=== PATIENT | female | born 1940 | race Caucasian/White ===

== ENCOUNTER 2017-02-26 13:32 | Inpatient (IN) | payer OTHER, BC ==
[~2017-02-26] VITALS: Ht 157.5 cm; Wt 61.3 kg
[2017-02-26] MEDS ORDERED: SODIUM CHLORIDE 0.9% 1000ML 1,000 ML IV STA (13:55)
[2017-02-26] MEDS ORDERED: NITROGLYCERIN 0.4 MG SL PER TAB CHARGE SL PRN ×2 (14:00→16:00)
--- NOTE | 2017-02-26 14:42 | DIAGNOSTIC IMAGING REPORT ---
CHEST ONE VIEW PORTABLE CLINICAL HISTORY: Chest pain. COMPARISON STUDY: No previous studies for comparison. FINDINGS: The lung volumes are normal. No pneumothorax or pleural effusion is present. Minimal left basilar opacity suggests atelectasis. There is no consolidation to suggest pneumonia and there is no evidence of pulmonary edema. Cardiomediastinal silhouette is unremarkable. IMPRESSION: 1. No acute cardiopulmonary findings. 2. Mild left basilar opacity which favors atelectasis. Electronically signed by: Christian Johnson M.D. 02/26/2017 2:40 PM Dictated Date/Time: 02/26/2017 2:39 PM
[2017-02-26 14:44] LABS: BASO % 0.5 %; BASO ABS # 0.03 K/uL (0-0.2); COMPLETE YES; EOS % 1.6 %; HEMATOCRIT 40.6 % (37-47); IG% 0.2 %; LYMPH % 22.8 %; LYMPH ABS # 1.29 K/uL (1.2-3.4); MEAN CELL VOLUME 91.4 fL (80-100); MEAN CORPUSCULAR HEMOGLOBIN 29.7 pg (25-34); MEAN CORPUSCULAR HGB CONC 32.5 g/dl (32-36); MEAN PLATELET VOLUME 11.3 fL (7.4-10.4); NEUT % 65.9 %; PLATELET COUNT 207 K/uL (130-400); RED BLOOD COUNT 4.44 M/uL (4.2-5.4); WHITE BLOOD COUNT 5.66 K/uL (4.8-10.8)
[2017-02-26 14:50] LABS: BUN/CREATININE RATIO 32.1 (10-20); CALCIUM 8.9 mg/dl (8.5-10.1); CREATININE 0.9 mg/dl (0.60-1.20); POTASSIUM 4.7 mmol/L (3.5-5.1)
[2017-02-26] MEDS ORDERED: IBUP-1277 PO (14:50)
[2017-02-26] MEDS ORDERED: FLUT0.15 NAE (14:50)
[2017-02-26] MEDS ORDERED: LUTE6CAP PO (14:50)
[2017-02-26] MEDS ORDERED: VALA500T60 PO (14:50)
[2017-02-26] MEDS ORDERED: CITA20TA9 PO (14:50)
[2017-02-26] MEDS ORDERED: OMEG10007 PO (14:50)
[2017-02-26] MEDS ORDERED: SIMV40TA2 PO (14:50)
[2017-02-26 15:06] LABS: CKMB/CK RATIO 1.8 (0-3.0)
[2017-02-26] MEDS ORDERED: HEPARIN 25000 UNIT/500 ML D5W ONE (15:58)
[2017-02-26] MEDS ORDERED: HEPARIN SOD 5000 UNIT/0.5 ML CARP ONE (15:58)
[2017-02-26] MEDS ORDERED: ACETAMINOPHEN 325 MG TAB PO PRN (16:00)
[2017-02-26] MEDS ORDERED: ONDANSETRON INJ 2 MG/ML 2 ML VIAL IV PRN (16:00)
[2017-02-26] MEDS ORDERED: HEPARIN IV BOLUS 3,000 UNIT in SYRINGE 0 ML IV ONE (16:15)
[2017-02-26] MEDS ORDERED: CALC500C70 PO (16:17)
[2017-02-26] MEDS ORDERED: LUTE15CA PO (16:17)
[2017-02-26] MEDS ORDERED: MULT-506 PO (16:17)
[2017-02-26] MEDS ORDERED: GLUC500C4 PO (16:17)
[2017-02-26] MEDS ORDERED: OPTIRAY 320 IV PRN (16:45)
[2017-02-26] MEDS ORDERED: DiphenhydrAMINE HCL 50 MG/ML VIAL ONE (17:13)
[2017-02-26] MEDS ORDERED: METHYLPREDNISOLONE 125 MG VIAL ONE (17:13)
--- NOTE | 2017-02-26 17:14 | History and Physical ---
History & Physical Date & Time of Service: Feb 26, 2017 ~ 15:45 Chief Complaint: Chest Pain Primary Care Physician: No Doctor, Assigned History of Present Illness 76 year old female who presents to the ER with chest pain. Patient reports she is very active with walking and exercising regularly and she noticed a week ago while on her stationary bike that she was very short of breath and had chest tightness. She reports that continually throughout the week she developed shortness of breath and chest tightness with minimal activity. She reports symptoms resolved with rest. She reports associated lightheadedness. Denies any syncopal events. Today after going for a short walk outside she also had diaphoresis with these symptoms. EMS was then called. She was given ASA and nitro with resolution of her pain. Patient notes feeling increasingly fatigued. She woke up in the middle of the night last night and had chest discomfort thinking it was reflux and took TUMS. She unsure of it helped however was able to fall back to sleep. She denies any radiation of the pain into her jaw, neck, or shoulder. She denies abdominal pain, nausea, vomiting, or diarrhea. No fever or chills. She denies urinary symptoms. In the ER, patient's troponin is 0.051, EKG is unchanged from prior. She is currently chest pain free. She was started on IV heparin. Past Medical/Surgical History Medical Problems: (1) Anxiety Status: Chronic (2) Arthritis Status: Chronic (3) HLD (hyperlipidemia) Status: Chronic Surgical Problems: (1) H/O oophorectomy Status: Chronic (2) H/O thumb surgery Status: Chronic (3) History of arthroscopy of right shoulder Status: Chronic (4) History of cataract surgery Status: Chronic Social History Smoking Status: Former Smoker Alcohol Use: occasionally Marital Status: Housing status: lives with family Allergies Coded Allergies: No Known Allergies (Unverified , 02/26/17) Home Medications Scheduled Calcium/Vitamin D (Os-Edi 500 Plus D), 1 TAB PO DAILY Citalopram Hydrobromide (Celexa), 20 MG PO HS Fish Oil ([place]-3), 1 CAP PO QAM Fluticasone Propionate (Nasal) (Flonase Allergy Relief), 1 SPRAY [place]ALE BID Glucosamine Sulfate (Glucosamine), 1 CAP PO DAILY Lutein-Zeaxanthin (Lutein), 1 CAP PO DAILY Multivitamin (Multivitamin), 1 TAB PO DAILY Simvastatin (Zocor), 40 MG PO HS Valacyclovir (Valtrex), 500 MG PO UD Scheduled PRN Ibuprofen (Advil), 200-600 MG PO UD PRN for Pain Review of Systems ROS per HPI, all other systems reviewed and negative Physical Exam Vital Signs Date Time Temp Pulse Resp B/P (MAP) Pulse Ox O2 Delivery O2 Flow Rate FiO2 02/26/17 16:32 74 17 96/83 02/26/17 16:10 127/63 02/26/17 16:02 62 21 02/26/17 15:32 71 22 97 02/26/17 15:02 66 26 98 02/26/17 14:32 61 20 98 02/26/17 14:31 129/64 02/26/17 14:28 126/73 02/26/17 14:28 66 16 126/73 98 Room Air 02/26/17 14:20 119/67 02/26/17 14:20 71 16 119/67 95 Room Air 02/26/17 14:02 68 26 98 02/26/17 13:59 36.6 72 16 127/71 94 Room Air 02/26/17 13:42 73 02/26/17 13:35 127/71 General Appearance: no apparent distress Head: normocephalic Eyes: normal inspection ENT: hearing grossly normal Neck: supple, no JVD Respiratory/Chest: chest non-tender, lungs clear, normal breath sounds, no respiratory distress Cardiovascular: regular rate, rhythm, no edema, normal peripheral pulses Abdomen/GI: normal bowel sounds, non tender, soft Extremities/Musculoskelatal: normal inspection, no calf tenderness Neurologic/Psych: no motor/sensory deficits, alert, normal mood/affect, oriented x 3 Skin: normal color, warm/dry Diagnostics Laboratory Results Results Past 24 Hours Test 02/26/17 14:10 Range/Units White Blood Count 5.66 4.8-10.8 K/uL Red Blood Count 4.44 4.2-5.4 M/uL Hemoglobin 13.2 12.0-16.0 g/dL Hematocrit 40.6 37-47 % Mean Corpuscular Volume 91.4 80-100 fL Mean Corpuscular Hemoglobin 29.7 25-34 pg Mean Corpuscular Hemoglobin Concent 32.5 32-36 g/dl Platelet Count 207 130-400 K/uL Mean Platelet Volume 11.3 7.4-10.4 fL Neutrophils (%) (Auto) 65.9 % Lymphocytes (%) (Auto) 22.8 % Monocytes (%) (Auto) 9.0 % Eosinophils (%) (Auto) 1.6 % Basophils (%) (Auto) 0.5 % Neutrophils # (Auto) 3.73 1.4-6.5 K/uL Lymphocytes # (Auto) 1.29 1.2-3.4 K/uL Monocytes # (Auto) 0.51 0.11-0.59 K/uL Eosinophils # (Auto) 0.09 0-0.5 K/uL Basophils # (Auto) 0.03 0-0.2 K/uL RDW Standard Deviation 48.2 36.4-46.3 fL RDW Coefficient of Variation 14.2 11.5-14.5 % Immature Granulocyte % (Auto) 0.2 % Immature Granulocyte # (Auto) 0.01 0.00-0.02 K/uL Activated Partial Thromboplast Time 27.1 21.0-31.0 SECONDS Partial Thromboplastin Ratio 1.0 D-Dimer 610 0-500 ug/L FEU Sodium Level 143 136-145 mmol/L Potassium Level 4.7 3.5-5.1 mmol/L Chloride Level 110 98-107 mmol/L Carbon Dioxide Level 27 21-32 mmol/L Anion Gap 6.0 3-11 mmol/L Blood Urea Nitrogen 29 7-18 mg/dl Creatinine 0.90 0.60-1.20 mg/dl Est Creatinine Clear Calc Drug Dose 46.1 ml/min Estimated GFR () 72.0 Estimated GFR (Non- 62.1 BUN/Creatinine Ratio 32.1 10-20 Random Glucose 84 70-99 mg/dl Calcium Level 8.9 8.5-10.1 mg/dl Total Creatine Kinase 39 26-192 U/L Creatine Kinase MB 0.7 0.5-3.6 ng/ml Creatine Kinase MB Ratio 1.8 0-3.0 Troponin I 0.051 0-0.045 ng/ml Diagnostic Radiology CXR IMPRESSION: 1. No acute cardiopulmonary findings. 2. Mild left basilar opacity which favors atelectasis. Impression Assessment and Plan CHEST PAIN, NSTEMI - admit to tele - patient presenting with worsening exertional chest pain x 1 week; in the ER, troponin 0.051, EKG unchanged from prior - risk factors: + family history, HLD - chest pain relieved with nitro with EMS - s/p full dose ASA with EMS, will continue with 81mg daily - takes simvastatin 40mg - will change to atorvastatin 80mg - heparin started in ED, will continue with - continue to cycle cardiac enzymes, check resting echo - case discussed with Dr. Sheridan ANXIETY - continue citalopram DVT PROPHYLAXIS - on IV heparin DISPO - In my clinical judgment this beneficiary meets acute admission criteria, established by [facility], that includes being hospitalized through two midnights. Attending Addendum Pt was seen and examined. Agreed with [facility] SNYDER physical exam, assessment and plan. 76 year old female presents to the ER with chest pain. Pt describes the pain as chest tightness associated with SOB; and symptoms worsening with exertion. General- No acute distress Head- atraumatic Eyes- PERRL, EOMI ENT- oropharynx clear Neck- supple, no JVD Lungs- clear to auscultation Heart- regular rhythm; no murmur A/P CHEST PAIN Possible NSTEMI with mildly elevated troponin - risk factors: + family history, HLD - chest pain relieved with nitro with EMS - s/p full dose ASA with EMS, will continue with 81mg daily - takes simvastatin 40mg - will change to atorvastatin 80mg - heparin started in ED, continue heparin drip - continue to cycle cardiac enzymes, check resting echo - cardiology consulted - Case discussed with Dr. Sheridan that plan for cardiac cath in am - Continue monitor in tele Lab, EKG and imaging reviewed Please refer to [facility] documentation for other problems. Jolynn Abreu MD VTE Prophylaxis VTE Risk Assessment Done? Y/N: Yes Risk Level: Moderate Given or contraindicated: Other Anticoagulation
--- NOTE | 2017-02-26 17:18 | DIAGNOSTIC IMAGING REPORT ---
CT ANGIOGRAM OF THE CHEST CLINICAL HISTORY: Atypical chest pain. Dyspnea. COMPARISON STUDY: Chest x-ray dated 02/26/2017. TECHNIQUE: Following the IV administration of 97 cc of Optiray 320, CT angiogram of the chest was performed from the upper abdomen to the thoracic inlet utilizing the pulmonary embolus protocol. Images are reviewed in the axial, sagittal, and coronal planes. 3-D MIPS images are created and assessed. IV contrast was administered without complication. A dose lowering technique was utilized adhering to the principles of ALARA. CT DOSE: 350.47 mGy.cm FINDINGS: Thyroid: Imaged portions of the thyroid gland are normal in size and attenuation. Thoracic aorta: The thoracic aorta is normal in caliber and demonstrates standard 3-vessel arch anatomy. No dissection is seen. Pulmonary vasculature: The pulmonary trunk is normal in caliber. There are no filling defects identified in main, lobar, or segmental pulmonary branches to suggest pulmonary embolus. Heart: The heart is normal in size and configuration, and without pericardial effusion. Lungs and pleural spaces: There is dependent atelectasis. No airspace consolidation is seen typical for pneumonia and there is no pleural effusion. The trachea and central airways are clear. Foci of air trapping are present at the lung bases. Mediastinum: There is no mediastinal lymphadenopathy. Scarlet: Clear. Axillae: There is no axillary lymphadenopathy. Upper abdomen: A 1.9 cm cyst is identified in the left lobe of the liver. Partially visualized upper abdominal viscera is otherwise within normal limits. Skeletal structures: The skeletal structures are osteopenic. No lytic or blastic bony lesions are seen. IMPRESSION: 1. There is no evidence of pulmonary embolus in the main, lobar, or segmental pulmonary arteries. 2. There is no airspace consolidation typical for pneumonia or pleural effusion. 3. There is significant bibasilar atelectasis with foci of air trapping in the lower lobes. Electronically signed by: Henrik Roland M.D. 02/26/2017 5:17 PM Dictated Date/Time: 02/26/2017 5:11 PM
[2017-02-26] MEDS ORDERED: METOPROLOL TARTRATE 1 MG/ML VIAL ONE (17:34)
[2017-02-26] MEDS ORDERED: METOPROLOL TARTRATE 50 MG TAB PO STA (17:43)
[2017-02-26] MEDS ORDERED: METOPROLOL TARTRATE 50 MG TAB ONE (17:57)
--- NOTE | 2017-02-26 18:11 | PROGRESS NOTE ---
DATE: 02/26/2017 CARDIOLOGY CONSULTATION FOLLOWUP NOTE SUBJECTIVE: The patient seen and examined in the emergency room at 1730. The patient after undergoing CT scan developed mild rigors and acute chest discomfort with elevated heart rate. Repeat EKG demonstrated ST elevation mild in V2. She was given sublingual nitroglycerin, IV fluids with resolve of symptoms and resolution of ST-segment changes on EKG. She was given 5 mg IV metoprolol for heart rate control. Will be continued on oral metoprolol, IV heparin, aspirin and anticipated cardiac catheterization in a.m. unless symptoms change, otherwise patient currently comfortable and hemodynamically stable. The patient was assessed by myself as well as Dr. Browne in the Emergency Room.
[2017-02-26 18:30] VITALS: BP 106/48; PULSE 64; TEMP 36.8; O2SAT 96; Ht 157.5 cm; Wt 61.3 kg
--- NOTE | 2017-02-26 19:23 | EMERGENCY ROOM VISIT NOTE ---
History Report prepared by Selwyn: Ryder Wilder Under the Supervision of: Dr. Lon Schofield D.O. First contact with patient: 13:43 Stated Complaint: CHEST PAIN History of Present Illness The patient is a 76 year old female who presents to the Emergency Room with complaints of intermittent chest pain that began last week. She rates her pain as a 1/10 in severity. She reports that she is typically active and was on her stationary bike when she started to experience chest tightness and shortness of breath, which she admits is not usual. The patient states that she had to turn down her speed and could not last as long. She states she was able to do her other exercises despite her experiencing diaphoresis. The patient states that she had a near syncopal episode and chest tightness while trying to make her bed four nights ago. She reports that she was able to sit down and her symptoms resolved. The patient reports around 0330 this morning, she woke up with a feeling of chest tightness again and thought it was her acid reflux. The patient states that she did not eat any food that would cause the reflux, but took Tums anyway. She reports that she was able to get back to sleep. The patient states that she went on a walk around 0930 this morning when she started to experience similar symptoms to her original chest pain experience. She states that she also developed a headache and neck tightness that caused her to stop her walk and return home. The patient states that she took two Tylenol for her symptoms and was given a nitroglycerin and aspiring on her way to the ED via EMS. She admits that she is always hungry and currently has a headache and neck pain. The patient admits she has a high cholesterol, but denies any heart disease, hypertension, diabetes, or cancer history. The patient denies change in vision, fevers, nausea, vomiting, diarrhea, pain with urination, and melena. Source of History: patient Onset: a week ago Position: chest Symptom Intensity: 1/10 Quality: other (tightness) Timing: intermittent Modifying Factors (Worsening): exertion Modifying Factors (Relieving): rest Associated Symptoms: + diaphoresis, + neck pain, + SOB, + weakness Review of Systems See HPI for pertinent positives & negatives. A total of 10 systems reviewed and were otherwise negative. Past Medical & Surgical Medical Problems: (1) Anxiety (2) Arthritis (3) HLD (hyperlipidemia) Surgical Problems: (1) H/O oophorectomy (2) H/O thumb surgery (3) History of arthroscopy of right shoulder (4) History of cataract surgery Family History FH: cancer FH: heart disease Hypertension Social History Smoking Status: Former Smoker Smokeless Tobacco Use: No Alcohol Use: occasionally Drug Use: none Marital Status: Housing Status: lives with significant other Occupation Status: retired Current/Historical Medications Scheduled Calcium/Vitamin D (Os-Edi 500 Plus D), 1 TAB PO DAILY Citalopram Hydrobromide (Celexa), 20 MG PO HS Fish Oil (Larned-3), 1 CAP PO QAM Fluticasone Propionate (Nasal) (Flonase Allergy Relief), 1 SPRAY DALE BID Glucosamine Sulfate (Glucosamine), 1 CAP PO DAILY Lutein-Zeaxanthin (Lutein), 1 CAP PO DAILY Multivitamin (Multivitamin), 1 TAB PO DAILY Simvastatin (Zocor), 40 MG PO HS Valacyclovir (Valtrex), 500 MG PO UD Scheduled PRN Ibuprofen (Advil), 200-600 MG PO UD PRN for Pain Allergies Coded Allergies: No Known Allergies (Unverified , 02/26/17) Physical Exam Vital Signs Date Time Temp Pulse Resp B/P (MAP) Pulse Ox O2 Delivery O2 Flow Rate FiO2 02/26/17 18:30 36.8 64 18 106/48 96 Room Air 02/26/17 17:50 82 20 126/59 97 Nasal Cannula 4.0 02/26/17 17:37 94 133/80 02/26/17 17:28 101 22 129/92 98 Nasal Cannula 4.0 02/26/17 16:32 74 17 96/83 02/26/17 16:10 127/63 02/26/17 16:02 62 21 02/26/17 15:32 71 22 97 02/26/17 15:02 66 26 98 02/26/17 14:32 61 20 98 02/26/17 14:31 129/64 02/26/17 14:28 126/73 02/26/17 14:28 66 16 126/73 98 Room Air 02/26/17 14:20 119/67 02/26/17 14:20 71 16 119/67 95 Room Air 02/26/17 14:02 68 26 98 02/26/17 13:59 36.6 72 16 127/71 94 Room Air 02/26/17 13:42 73 02/26/17 13:35 127/71 Physical Exam GENERAL: sitting up in bed, alert, ill appearing, moderate distress EYE EXAM: normal conjunctiva, PERRL and EOM's grossly intact OROPHARYNX: no exudate, no erythema, lips, buccal mucosa, and tongue normal and mucous membranes are moist NECK: supple, no nuchal rigidity, no adenopathy, non-tender LUNGS: Clear to auscultation. Normal chest wall mechanics HEART: no murmurs, S1 normal and S2 normal ABDOMEN: abdomen soft, non-tender, normo-active bowel sounds, no masses, no rebound or guarding. BACK: Back is symmetrical on inspection and there is no deformity, no midline tenderness, no CVA tenderness. SKIN: no rashes and no bruising UPPER EXTREMITIES: upper extremities are grossly normal. Radial pulses equal bilaterally. LOWER EXTREMITIES: No pitting edema. Calves equal bilaterally. NEURO EXAM: Normal sensorium, cranial nerves II-XII grossly intact, normal speech, no gross weakness of arms, no gross weakness of legs. Gross sensation intact. Medical Decision & Procedures ER Provider Diagnostic Interpretation: XRAY: A chest one view study was reviewed, no fracture was seen. CHEST ONE VIEW PORTABLE CLINICAL HISTORY: Chest pain. COMPARISON STUDY: No previous studies for comparison. FINDINGS: The lung volumes are normal. No pneumothorax or pleural effusion is present. Minimal left basilar opacity suggests atelectasis. There is no consolidation to suggest pneumonia and there is no evidence of pulmonary edema. Cardiomediastinal silhouette is unremarkable. IMPRESSION: 1. No acute cardiopulmonary findings. 2. Mild left basilar opacity which favors atelectasis. Electronically signed by: Christian Johnson M.D. 02/26/2017 2:40 PM Dictated Date/Time: 02/26/2017 2:39 PM Laboratory Results 02/26/17 14:10 Red Blood Count 4.44, Mean Corpuscular Volume 91.4, Mean Corpuscular Hemoglobin 29.7, Mean Corpuscular Hemoglobin Concent 32.5, Mean Platelet Volume 11.3, Neutrophils (%) (Auto) 65.9, Lymphocytes (%) (Auto) 22.8, Monocytes (%) (Auto) 9.0, Eosinophils (%) (Auto) 1.6, Basophils (%) (Auto) 0.5, Neutrophils # (Auto) 3.73, Lymphocytes # (Auto) 1.29, Monocytes # (Auto) 0.51, Eosinophils # (Auto) 0.09, Basophils # (Auto) 0.03 02/26/17 14:10 Test 02/26/17 14:10 White Blood Count 5.66 K/uL (4.8-10.8) Red Blood Count 4.44 M/uL (4.2-5.4) Hemoglobin 13.2 g/dL (12.0-16.0) Hematocrit 40.6 % (37-47) Mean Corpuscular Volume 91.4 fL (80-100) Mean Corpuscular Hemoglobin 29.7 pg (25-34) Mean Corpuscular Hemoglobin Concent 32.5 g/dl (32-36) Platelet Count 207 K/uL (130-400) Mean Platelet Volume 11.3 fL (7.4-10.4) Neutrophils (%) (Auto) 65.9 % Lymphocytes (%) (Auto) 22.8 % Monocytes (%) (Auto) 9.0 % Eosinophils (%) (Auto) 1.6 % Basophils (%) (Auto) 0.5 % Neutrophils # (Auto) 3.73 K/uL (1.4-6.5) Lymphocytes # (Auto) 1.29 K/uL (1.2-3.4) Monocytes # (Auto) 0.51 K/uL (0.11-0.59) Eosinophils # (Auto) 0.09 K/uL (0-0.5) Basophils # (Auto) 0.03 K/uL (0-0.2) RDW Standard Deviation 48.2 fL (36.4-46.3) RDW Coefficient of Variation 14.2 % (11.5-14.5) Immature Granulocyte % (Auto) 0.2 % Immature Granulocyte # (Auto) 0.01 K/uL (0.00-0.02) Activated Partial Thromboplast Time 27.1 SECONDS (21.0-31.0) Partial Thromboplastin Ratio 1.0 D-Dimer 610 ug/L FEU (0-500) Anion Gap 6.0 mmol/L (3-11) Est Creatinine Clear Calc Drug Dose 46.1 ml/min Estimated GFR () 72.0 Estimated GFR (Non- 62.1 BUN/Creatinine Ratio 32.1 (10-20) Calcium Level 8.9 mg/dl (8.5-10.1) Total Creatine Kinase 39 U/L (26-192) Creatine Kinase MB 0.7 ng/ml (0.5-3.6) Creatine Kinase MB Ratio 1.8 (0-3.0) Troponin I 0.051 ng/ml (0-0.045) Thyroid Stimulating Hormone (TSH) 1.920 uIu/ml (0.300-4.500) Laboratory results per my review. Medications Administered Medications (Trade) Dose Ordered Sig/Susanna Route Start Time Stop Time Status Last Admin Dose Admin Sodium Chloride 1,000 ml @ 999 mls/hr Q1H1M STAT IV 02/26/17 13:55 02/26/17 14:55 DC 02/26/17 14:05 999 MLS/HR Nitroglycerin (Nitrostat Tab) 0.4 mg Q5M PRN SL 02/26/17 14:00 03/28/17 13:59 02/26/17 14:04 0.4 MG Heparin Sodium (Porcine) (Heparin Sq 5000 Unit/0.5ml) 5,000 unit STK-MED ONCE .ROUTE 02/26/17 15:58 02/26/17 15:59 DC 02/26/17 16:05 3,000 UNIT Heparin Sodium/ Dextrose (Heparin 25,000 Unit/500ml D5W) 25,000 unit STK-MED ONCE .ROUTE 02/26/17 15:58 02/26/17 15:59 DC 02/26/17 16:06 25,000 UNIT Nitroglycerin (Nitrostat Tab) 0.4 mg UD PRN SL 02/26/17 16:00 03/28/17 15:59 02/26/17 17:37 0.4 MG Methylprednisolone Sodium Succinate (Solu-Medrol IV) 125 mg STK-MED ONCE .ROUTE 02/26/17 17:13 02/26/17 17:14 DC 02/26/17 17:37 125 MG Diphenhydramine HCl (Benadryl Inj) 50 mg STK-MED ONCE .ROUTE 02/26/17 17:13 02/26/17 17:14 DC 7/24/17 17:37 50 MG Metoprolol Tartrate (Lopressor Iv) 5 mg STK-MED ONCE .ROUTE 02/26/17 17:34 02/26/17 17:35 DC 02/26/17 17:37 5 MG Metoprolol Tartrate (Lopressor Tab) 50 mg STK-MED ONCE .ROUTE 02/26/17 17:57 02/26/17 17:58 DC 02/26/17 18:04 25 MG ECG Indication: chest pain Rate (beats per minute): 67 Rhythm: normal sinus Findings: T-wave inversion (Inferior), other (Slight faint ST depression) Change: REPEAT EKG showed ST Elevation inferiorly and septal q waves. ED Course ED COURSE: Vital signs were reviewed and showed hypertension The patients medical record was reviewed The above diagnostic studies were performed and reviewed. ED treatments and interventions as stated above. 1347: The patient was evaluated in room B04B. A complete history and physical examination was performed. 1355: Sodium Chloride 1000 ml @ 999 mls/hr IV. 1400: Nitroglycerin 0.4 mg SL. 1410: I reevaluated the patient and she reports no chest pain. 1521: I discussed the patient's case with LILLIAN Diaz. She understands the patient's conditions 1526: Heparin Sodium/Dextrose 1 each. I reevaluated the patient and she is resting comfortably. The patient has no bleeding risk factors. 1558: Heparin Sodium/Dextrose 5000 unit. 1735: I performed a repeat EKG and heart alert was called. I reevaluated the patient and Dr. Browne is by her bedside. Her chest pain is resolved with the administration of the nitroglycerin. Her EKG is also normalizing. Medical Decision Differential diagnoses includes but is not limited to acute coronary syndrome, myocardial infarction, pericarditis, pulmonary embolus, aortic dissection, pneumonia, pneumothorax, musculoskeletal, shingles, esophageal. Medication Reconciliation: I attest that I have personally reviewed the patient' s current medication list. Blood Pressure Screening: The patient was found to have a slightly elevated blood pressure due to circumstances. I do not believe that the patient requires hypertension monitoring. Patient is a 76 her old female who presents the ER with exertional chest pain off-and-on for the past week. Upon presentation to the ER she still had mild chest discomfort which she initially denied. She was are given aspirin prior to arrival. She was given nitroglycerin while in the ER at complete resolution of her pain. EKG showed flipped T waves in the inferior leads. Troponin was elevated. Discussed risk factors for bleeding which she had none. She is placed on heparin. Discussed with internal medicine following which the patient was admitted and evaluated by cardiology. She was taken over to CAT scan and following IV contrast she started having severe crushing chest pain. She was taken to D4 were was called to bedside. We immediately gave her Benadryl and obtained several repeat EKGs which showed ST segment elevation in V1 and V2. I call a STEMI alert. I also contacted cardiology who evaluated her earlier. Both interventional cardiology and Dr. Sheridan were at bedside. Eventually got her pain to ar at bedside following a full dose and nitroglycerin. She was given a bolus of fluids. Repeat EKG which was performed in the trauma bay showed improvement of the ST segment elevation. Patient was given 2.5 mg of Lopressor. Both interventional cardiology, cardiology and internal medicine were at bedside. They finally decided since she was pain-free to take her to the ICU. Patient was updated bedside. She was initially admitted with unstable angina and with worsening pain had ST segment elevation which eventually resolved with nitroglycerin. Patient remained on a heparin drip following that initial bolus while in the ER. Medication Reconcilliation Current Medication List: was personally reviewed by me Blood Pressure Screening Patient's blood pressure: Elevated blood pressure Blood pressure disposition: Elevated BP felt to be situational Consults Time Called: 1521 Consulting Physician: LILLIAN Diaz Returned Call: 1521 I discussed the patient's case with LILLIAN Diaz. She understands the patient's conditions Impression Primary Impression: STEMI (ST elevation myocardial infarction) Additional Impression: Unstable angina Critical Care I have personally spent 75 minutes of critical care time in the direct management of this patient. This includes bedside care, interpretation of diagnostic studies, and testing, discussion with consultants, patient, and family members, and other required patient management activities. This 75 minutes is in excess of all separately billable procedures. Scribe Attestation The scribe's documentation has been prepared under my direction and personally reviewed by me in its entirety. I confirm that the note above accurately reflects all work, treatment, procedures, and medical decision making performed by me. Departure Information Dispostion Being Evaluated By Hospitalist Referrals No Doctor, Assigned (PCP) Problem Qualifiers Primary Impression: STEMI (ST elevation myocardial infarction) Involved coronary artery: unspecified coronary artery Qualified Codes: I21.3 - ST elevation (STEMI) myocardial infarction of unspecified site
[2017-02-26] MEDS: HEPARIN 25000 UNIT/ D5W 500 ML (PHARMACY PREPARED) IV PRN ×2 (19:45)
[2017-02-26 20:00] VITALS: O2SAT 97
[2017-02-26 20:17] VITALS: BP 109/57; PULSE 85; TEMP 36.9; O2SAT 97
--- NOTE | 2017-02-26 20:25 | DIAGNOSTIC IMAGING REPORT ---
ULTRASOUND BILATERAL LOWER EXTREMITY VENOUS CLINICAL HISTORY: Elevated d-dimer. COMPARISON STUDY: No priors. TECHNIQUE: Real-time, grayscale, and color Doppler sonography of the deep veins of the right and left lower extremity was performed from the inguinal crease to the calf. Compression and augmentation were utilized. FINDINGS: There is no sonographic evidence of deep venous thrombosis identified in the right or left lower extremity. The common femoral, superficial femoral, and popliteal veins are patent and normally compressible bilaterally. The greater saphenous vein and the profunda femoris vein at the junction with the common femoral vein are clear in both legs. The visualized calf veins are patent bilaterally. IMPRESSION: There is no sonographic evidence of deep venous thrombosis identified in the right or left lower extremity. Electronically signed by: Henrik Roland M.D. 02/26/2017 8:24 PM Dictated Date/Time: 02/26/2017 8:23 PM
[2017-02-26] MEDS ORDERED: CITALOPRAM 20 MG TAB PO SCH (21:00)
[2017-02-26] MEDS: ATORVASTATIN 40 MG TAB PO SCH (21:09)
[2017-02-26 22:46] LABS: PARTIAL THROMBOPLASTIN RATIO 1.9
[2017-02-26] MEDS: METOPROLOL TARTRATE 25 MG TAB PO SCH (23:36)
[2017-02-27] MEDS ORDERED: SODIUM CHLORIDE 0.9% 1000ML 1,000 ML IV SCH
[2017-02-27 00:08] VITALS: BP 107/59; PULSE 77; TEMP 37; O2SAT 94
--- NOTE | 2017-02-27 02:01 | CARDIOLOGY CONSULTATION ---
DATE OF CONSULTATION: 02/26/2017 REFERRING: LILLIAN Diaz. INDICATION: Exertional chest pain and fatigue. HISTORY OF PRESENT ILLNESS: The patient is a 76-year-old female who bethea in [place] and t[place] in [place], [place], currently presented with new symptoms of exertional dyspnea and shortness of breath of approximately 1-2 weeks with severe symptoms worsening over the last 1-2 days. Her past medical history is notable for degenerative joint disease; hyperlipidemia, on therapy. She has no prior history of cardiac disease. Notes no history of TIA or stroke. Notes no history of murmur, rheumatic fever, scarlet fever, renal or hepatic disease. Does carry a family history of heart disease with father having premature coronary disease. The patient as described has been recently experiencing symptoms of pressure in the abdomen and chest with activities. Had been evaluated for left arm and shoulder pain and underwent shoulder injection in the left approximately 7 weeks ago but continued to experience symptoms of pain in shoulder as well as left back. She was begun on increased dose of ibuprofen. She does carry an underlying history of gastroesophageal reflux. Today, symptoms awakened her from sleep early in the morning, described as epigastric pain in her mid substernal, pain radiating up to her chest and shoulder. She did take ibuprofen before reclining in bed. Symptoms eased on awakening this morning, attempted to do her usual walk and had to stop due to exertional pressure and pain in the chest and shoulder after only 5 minutes of walk, usual duration 2 miles for more than 30 minutes. Due to symptoms and worsening complaints, she presented to the Emergency Room. She feels her symptoms were relieved by nitroglycerin, now currently comfortable. She denies any recent fevers, chills or infections. Notes no cough, hoarseness, wheeze or hemoptysis. Weight is up slightly. Notes no melena, hematochezia, dysuria or hematuria. Notes no bleeding difficulties. REVIEW OF SYSTEMS: Otherwise negative. ALLERGIES: None. MEDICATIONS PRIOR TO HOSPITALIZATION: Calcium 500 mg plus D per day, Celexa 20 mg p.o. daily, omega-3 fish oil per day, Flonase, glucosamine, Advil, multivitamin per day, Zocor 40 mg at bedtime, Valtrex p.r.n. PAST SURGICAL HISTORY: Notable for prior right shoulder arthroscopic surgery, cataract extraction, right thumb surgery for orthopedic issues, and prior Mohs surgery of the right eyelid. FAMILY HISTORY: Positive for heart disease with father dying at age 49. Her mother lived to be 92 but did of a myocardial infarction as did an aunt at age 86. SOCIAL HISTORY: As described, the patient resides in [place], [place], in the winter months and [place] in the summer months. Her [id number] is a local physician, Aziza Doherty. She is a nonsmoker since age 30. She uses rare alcoholic beverages, utmost 1 glass of wine per week. Does take [id number] medications with Tums and Rolaids. PHYSICAL EXAMINATION: VITAL SIGNS: Heart rate is 74, blood pressure is 96/83. HEENT: Normocephalic and atraumatic. Nares without discharge. Throat is clear. NECK: Supple without thyromegaly or lymphadenopathy. There are no carotid bruits. Carotid pulses are 2+/4. LUNGS: Clear with good aeration to both bases. CARDIOVASCULAR: Regular with a grade 1/6 systolic murmur heard best at the left upper sternal border. There is no diastolic murmur. PMI is nondisplaced. ABDOMEN: Soft, nontender. There is no palpable hepatosplenomegaly. There is no hepatojugular reflux. EXTREMITIES: Without cyanosis or clubbing. There is no peripheral edema. DATA: Chest x-ray revealed no acute findings. LABORATORY STUDIES: Revealed mildly elevated D-dimer of 610. Sodium of 143, potassium 4.7, chloride 110, bicarbonate 27, BUN 29, creatinine 0.9. CK was 39, CK-MB was normal. Troponin was mildly elevated at 0.05. The patient is currently anticoagulated. IMPRESSION AND PLAN: A 76-year-old female without prior cardiac history, referred now for chest pain. EKG reveals no acute findings in comparison to prior studies with chronic left anterior fascicular block, poor R-wave progression across the anterior precordial leads. Symptoms are concerning for significant decline in overall exercise capacity in the past week's time with exertional pressure and shortness of breath. CT scan has been ordered due to D-dimer elevation, we will review as available, but we will have low threshold for proceeding for diagnostic cardiac catheterization to further evaluate symptoms. Echocardiogram has been ordered. The patient has received aspirin in the ER and will be continued on statin therapy with intensification of prehospital therapy. We will review echo and subsequent laboratory studies with further recommendations pending findings in a.m. The patient to be kept n.p.o. after midnight. MTDD
[2017-02-27 03:54] VITALS: BP 104/42; PULSE 63; TEMP 37.1; O2SAT 95
[2017-02-27 05:46] LABS: HEMATOCRIT 38.7 % (37-47); MEAN CELL VOLUME 90.6 fL (80-100); MEAN CORPUSCULAR HGB CONC 33.1 g/dl (32-36); MEAN PLATELET VOLUME 11.7 fL (7.4-10.4); PLATELET COUNT 194 K/uL (130-400); RED BLOOD COUNT 4.27 M/uL (4.2-5.4); WHITE BLOOD COUNT 7.63 K/uL (4.8-10.8)
[2017-02-27 06:09] LABS: PARTIAL THROMBOPLASTIN RATIO 1.8
[2017-02-27 06:20] LABS: BUN/CREATININE RATIO 27.7 (10-20); CALCIUM 8.5 mg/dl (8.5-10.1); CREATININE 0.82 mg/dl (0.60-1.20); POTASSIUM 4.2 mmol/L (3.5-5.1)
[2017-02-27 06:23] LABS: CHOLESTEROL/HDL RATIO 2.7
[2017-02-27] MEDS: METOPROLOL TARTRATE 25 MG TAB PO SCH ×3 (06:27→17:20)
[2017-02-27] MEDS: HEPARIN 25000 UNIT/ D5W 500 ML (PHARMACY PREPARED) IV PRN ×2 (06:32)
[2017-02-27] MEDS ORDERED: HEPARIN IV BOLUS 2,000 UNIT in SYRINGE 0 ML IV ONE (07:00)
[2017-02-27 08:51] VITALS: BP 102/45; PULSE 54; TEMP 36.8; O2SAT 98
[2017-02-27] MEDS ORDERED: CALCIUM 600MG + VIT D 400 IU TAB PO SCH (09:00)
[2017-02-27] MEDS ORDERED: ASPIRIN 81 MG ECTAB PO SCH (09:00)
[2017-02-27] MEDS ORDERED: MULTIVITAMIN TAB PO SCH (09:00)
[2017-02-27] MEDS ORDERED: GLUCOSAMINE SULFATE 500 MG CAP PO SCH (09:00)
[2017-02-27] MEDS ORDERED: OMEGA-3 (PURIFIED FISH OIL) 1 GM CAP PO SCH (09:00)
--- NOTE | 2017-02-27 09:30 | ECHOCARDIOGRAM REPORT ---
*NOTICE TO RECEIVING LIBERTARIAN AGENCY This information is strictly Confidential and protected under [place] law. [place] law prohibits you from making any further disclosure of this information unless further disclosure is expressly permitted by the written consent of the person to whom it pertains or is authorized by law. A general authorization for the release of medical or other information is not sufficient for this purpose. Hospital accepts no responsibility if the information is made available to any other person, INCLUDING THE PATIENT. Interpretation Summary * Name: CATARINA LANG Study Date: 02/27/2017 06:25 AM BP: 104/42 mmHg * Patient Location: [facility] HR: 63 * : 1940 (M/d/yyyy) Gender: Female Height: 62 in * Age: 76 yrs Ethnicity: CA Weight: 136 lb * Ordering Physician: Sun Pena * Performed By: Latia Tillman * * Reason For Study: CHEST PAIN * BSA: 1.6 m2 * -- Conclusions -- * The left ventricle is normal in size. * There is mild concentric left ventricular hypertrophy. * The left ventricular wall motion is normal. * Left ventricular systolic function is normal. * Ejection Fraction = 65-70%. * Aortic valve sclerosis mild, without significant aortic valvular stenosis. Procedure Details * A complete two-dimensional transthoracic echocardiogram was performed (2D, M-mode, Doppler and color flow Doppler). * A contrast injection of Definity was performed to improve assessment of LV function. * Contrast was injected into an intravenous site in the right arm. * One vial of Definity ultrasound contrast was diluted in normal saline to a total volume of 10 ml. A total of '3' ml of solution was administered during imaging. * Lot # [id number] of Definity utilized for procedure. * Expiration date 03/23. * The attending nurse who injected the contrast agent was YULISA ANTONIO RN. Left Ventricle * The left ventricle is normal in size. * There is mild concentric left ventricular hypertrophy. * Ejection Fraction = 65-70%. * Left ventricular systolic function is normal. * The left ventricular wall motion is normal. Right Ventricle * The right ventricle is normal in size and function. Atria * The left atrial size is normal. * Right atrial size is normal. * No ASD detected; PFO is not assessed. Mitral Valve * There is mild mitral annular calcification. * There is no mitral valve stenosis. * There is trace mitral regurgitation. Tricuspid Valve * The tricuspid valve anatomy is normal. * There is no tricuspid stenosis. * There is trace tricuspid regurgitation. * Doppler findings do not suggest pulmonary hypertension. Aortic Valve * The aortic valve is trileaflet. * Aortic valve sclerosis mild, without significant aortic valvular stenosis. * No hemodynamically significant valvular aortic stenosis. * No aortic regurgitation is present. Pulmonic Valve * The pulmonic valve is not well visualized. Great Vessels * The aortic root is normal size. Pericardium/Pleural * There is no pericardial effusion. Great Vessels * Normal inferior vena cava diameter and respiratory variation suggests normal central venous pressure. MMode 2D Measurements and Calculations IVSd 0.84 cm IVSs 1.3 cm LVIDd 4.0 cm LVIDs 2.3 cm LVPWd 0.52 cm LVPWs 0.94 cm IVS/LVPW 1.6 FS 42.3 % EDV(Teich) 69.1 ml ESV(Teich) 18.0 ml EF(Teich) 73.9 % EDV(cubed) 63.0 ml ESV(cubed) 12.1 ml EF(cubed) 80.8 % % IVS thick 58.8 % % LVPW thick 82.2 % LV mass(C)d 74.8 grams LV mass(C)dI 46.1 grams/m\S\2 LV mass(C)s 70.2 grams LV mass(C)sI 43.3 grams/m\S\2 CO(Teich) 2.6 l/min CI(Teich) 1.6 l/min/m\S\2 SV(Teich) 51.1 ml SI(Teich) 31.5 ml/m\S\2 CO(cubed) 2.5 l/min CI(cubed) 1.6 l/min/m\S\2 SV(cubed) 50.9 ml SI(cubed) 31.4 ml/m\S\2 ACS 1.0 cm asc Aorta Diam 2.5 cm LVOT diam 1.7 cm LVOT area 2.3 cm\S\2 LVAd ap4 22.1 cm\S\2 LVLd ap4 6.6 cm EDV(MOD-sp4) 59.4 ml LVAs ap4 11.2 cm\S\2 LVLs ap4 5.7 cm ESV(MOD-sp4) 18.6 ml EF(MOD-sp4) 68.7 % LVAd ap2 14.0 cm\S\2 LVLd ap2 6.5 cm EDV(MOD-sp2) 24.3 ml LVAs ap2 6.7 cm\S\2 LVLs ap2 5.1 cm ESV(MOD-sp2) 7.7 ml EF(MOD-sp2) 68.2 % CO(MOD-sp4) 2.0 l/min CI(MOD-sp4) 1.3 l/min/m\S\2 SV(MOD-sp4) 40.8 ml SI(MOD-sp4) 25.1 ml/m\S\2 CO(MOD-sp2) 0.83 l/min CI(MOD-sp2) 0.51 l/min/m\S\2 SV(MOD-sp2) 16.6 ml SI(MOD-sp2) 10.2 ml/m\S\2 Doppler Measurements and Calculations MV E max jenni 99.0 cm/sec MV A max jenni 60.6 cm/sec MV E/A 1.6 MV dec time 0.23 sec Ao V2 max 154.2 cm/sec Ao max PG 9.5 mmHg Ao max PG (full) 6.1 mmHg KOFI(V,A) 1.4 cm\S\2 KOFI(V,D) 1.4 cm\S\2 AI max jenni 408.6 cm/sec AI max PG 66.8 mmHg AI dec slope 184.9 cm/sec\S\2 AI P1/2t 647.1 msec LV V1 max PG 3.4 mmHg LV V1 max 92.2 cm/sec PA V2 max 51.9 cm/sec PA max PG 1.1 mmHg PI end-d jenni 69.9 cm/sec TR max jenni 213.1 cm/sec
--- NOTE | 2017-02-27 10:00 | Progress Note ---
Internal Med Progress Note Date of Service: Feb 27, 2017. Provider Documentation: SUBJECTIVE: had uneventful night did not had any chest pain or SOB overnight scheduled to have cardiac cath this AM OBJECTIVE: Vital Signs-as noted below Exam: General-no sign of distress Eyes-sclera non icteric ENT-NAD Neck-no JVD , no lower ext edema Lungs-CTA , no wheeze or rales Heart-regular S1/S2 Abdomen-soft ,non tender Extremities-no rash or deformity Neuro-no focal deficit , AAO x3 Lab data as noted below. ASSESSMENT & PLAN: NSTEMI /CHEST PAIN - patient presenting with worsening exertional chest pain x 1 week; in the ER, troponin 0.051, EKG unchanged from prior - risk factors: + family history, HLD - chest pain relieved with nitro with EMS - CTA of chest -no PE , pt developed severe substernal pain , discomfort during scan , EKG shows ST elevation on V2 -resolved AM EKG shows T wave inversion on ant /lat leads appreciate input form cardiology IV Lopressor 5 mg X1 ordered started on IV heparin remains asymptomatic overnight on Aspirin , beta angelic , statin appreciate cardiology eval ECHO : no wall motion abnormality noted scheduled to cardiac cath and possible intervention today - takes simvastatin 40mg -changed to atorvastatin 80mg - ANXIETY - continue citalopram DVT PROPHYLAXIS - on IV heparin FULL CODE DISPOSITION expected to be discharged home when medically stable Vital Signs: Date Time Temp Pulse Resp B/P (MAP) Pulse Ox O2 Delivery O2 Flow Rate FiO2 02/27/17 08:51 36.8 54 20 102/45 (64) 98 Room Air 02/27/17 04:00 Room Air 02/27/17 03:54 37.1 63 20 104/42 (62) 95 Room Air 02/27/17 00:08 37.0 77 21 107/59 (75) 94 Room Air 02/27/17 00:01 Room Air 02/26/17 20:17 36.9 85 20 109/57 (74) 97 Room Air 02/26/17 20:00 97 Room Air 02/26/17 18:30 36.8 64 18 106/48 96 Room Air 02/26/17 17:50 82 20 126/59 97 Nasal Cannula 4.0 02/26/17 17:37 94 133/80 02/26/17 17:28 101 22 129/92 98 Nasal Cannula 4.0 02/26/17 16:32 74 17 96/83 02/26/17 16:10 127/63 02/26/17 16:02 62 21 02/26/17 15:32 71 22 97 02/26/17 15:02 66 26 98 02/26/17 14:32 61 20 98 02/26/17 14:31 129/64 02/26/17 14:28 126/73 02/26/17 14:28 66 16 126/73 98 Room Air 02/26/17 14:20 119/67 02/26/17 14:20 71 16 119/67 95 Room Air 02/26/17 14:02 68 26 98 02/26/17 13:59 36.6 72 16 127/71 94 Room Air 02/26/17 13:42 73 02/26/17 13:35 127/71 Lab Results: Results Past 24 Hours Test 02/26/17 14:10 02/26/17 20:00 02/26/17 20:20 02/26/17 22:12 Range/Units White Blood Count 5.66 4.8-10.8 K/uL Red Blood Count 4.44 4.2-5.4 M/uL Hemoglobin 13.2 12.0-16.0 g/dL Hematocrit 40.6 37-47 % Mean Corpuscular Volume 91.4 80-100 fL Mean Corpuscular Hemoglobin 29.7 25-34 pg Mean Corpuscular Hemoglobin Concent 32.5 32-36 g/dl Platelet Count 207 130-400 K/uL Mean Platelet Volume 11.3 7.4-10.4 fL Neutrophils (%) (Auto) 65.9 % Lymphocytes (%) (Auto) 22.8 % Monocytes (%) (Auto) 9.0 % Eosinophils (%) (Auto) 1.6 % Basophils (%) (Auto) 0.5 % Neutrophils # (Auto) 3.73 1.4-6.5 K/uL Lymphocytes # (Auto) 1.29 1.2-3.4 K/uL Monocytes # (Auto) 0.51 0.11-0.59 K/uL Eosinophils # (Auto) 0.09 0-0.5 K/uL Basophils # (Auto) 0.03 0-0.2 K/uL RDW Standard Deviation 48.2 36.4-46.3 fL RDW Coefficient of Variation 14.2 11.5-14.5 % Immature Granulocyte % (Auto) 0.2 % Immature Granulocyte # (Auto) 0.01 0.00-0.02 K/uL Activated Partial Thromboplast Time 27.1 50.2 21.0-31.0 SECONDS Partial Thromboplastin Ratio 1.0 1.9 D-Dimer 610 0-500 ug/L FEU Sodium Level 143 136-145 mmol/L Potassium Level 4.7 3.5-5.1 mmol/L Chloride Level 110 98-107 mmol/L Carbon Dioxide Level 27 21-32 mmol/L Anion Gap 6.0 3-11 mmol/L Blood Urea Nitrogen 29 7-18 mg/dl Creatinine 0.90 0.60-1.20 mg/dl Est Creatinine Clear Calc Drug Dose 46.1 ml/min Estimated GFR () 72.0 Estimated GFR (Non- 62.1 BUN/Creatinine Ratio 32.1 10-20 Random Glucose 84 70-99 mg/dl Calcium Level 8.9 8.5-10.1 mg/dl Total Creatine Kinase 39 26-192 U/L Creatine Kinase MB 0.7 1.5 0.5-3.6 ng/ml Creatine Kinase MB Ratio 1.8 0-3.0 Troponin I 0.051 0.463 0-0.045 ng/ml Thyroid Stimulating Hormone (TSH) 1.920 0.300-4.500 uIu/ml Test 02/27/17 02:00 02/27/17 02:51 02/27/17 05:11 Range/Units Creatine Kinase MB Ratio 0-3.0 Creatine Kinase MB 1.7 0.5-3.6 ng/ml Troponin I 0.248 0-0.045 ng/ml White Blood Count 7.63 4.8-10.8 K/uL Red Blood Count 4.27 4.2-5.4 M/uL Hemoglobin 12.8 12.0-16.0 g/dL Hematocrit 38.7 37-47 % Mean Corpuscular Volume 90.6 80-100 fL Mean Corpuscular Hemoglobin 30.0 25-34 pg Mean Corpuscular Hemoglobin Concent 33.1 32-36 g/dl RDW Standard Deviation 47.8 36.4-46.3 fL RDW Coefficient of Variation 14.3 11.5-14.5 % Platelet Count 194 130-400 K/uL Mean Platelet Volume 11.7 7.4-10.4 fL Activated Partial Thromboplast Time 46.0 21.0-31.0 SECONDS Partial Thromboplastin Ratio 1.8 Sodium Level 144 136-145 mmol/L Potassium Level 4.2 3.5-5.1 mmol/L Chloride Level 116 98-107 mmol/L Carbon Dioxide Level 20 21-32 mmol/L Anion Gap 8.0 3-11 mmol/L Blood Urea Nitrogen 23 7-18 mg/dl Creatinine 0.82 0.60-1.20 mg/dl Est Creatinine Clear Calc Drug Dose 50.3 ml/min Estimated GFR () 80.6 Estimated GFR (Non- 69.5 BUN/Creatinine Ratio 27.7 10-20 Random Glucose 133 70-99 mg/dl Calcium Level 8.5 8.5-10.1 mg/dl Triglycerides Level 46 0-150 mg/dl Cholesterol Level 186 0-200 mg/dl HDL Cholesterol 70 mg/dl LDL Cholesterol, Calculated 107 mg/dl VLDL Cholesterol, Calculated 9 mg/dl Cholesterol/HDL Ratio 2.7
[2017-02-27] MEDS ORDERED: NiCARDipine HCL INJ 2.5 MG/ML 10 ML AMP ONE (11:20)
[2017-02-27] MEDS ORDERED: HEPARIN SOD (PORCINE) 1000 UNIT/ML 10 ML VIAL ONE (11:20)
[2017-02-27] MEDS ORDERED: FENTANYL CITRATE INJ 50 MCG/1 ML 2 ML VIAL ONE (11:21)
[2017-02-27] MEDS ORDERED: MIDAZOLAM HCL 1 MG/ML 2ML VIAL ONE (11:21)
[2017-02-27] MEDS ORDERED: NITROGLYCERIN/D5W 100MCG/ML 20ML SYR ONE (11:21)
--- NOTE | 2017-02-27 11:44 | CARDIOLOGY PROGRESS NOTE ---
DATE: 02/27/2017 DATE: 02/27/2017. The patient seen and examined. Chart, medications, telemetry reviewed. SUBJECTIVE: The patient had no further chest pains or discomfort overnight. Notes no dizziness or lightheadedness. Notes no tachypalpitations. Breathing is doing well. OBJECTIVE: VITAL SIGNS: Heart rate is 54, blood pressure is 102/45, O2 saturation is 95% on room air. NECK: Neck is thin. There is no jugular venous distention. No carotid bruits. LUNGS: Clear. CARDIOVASCULAR EXAMINATION: Regular with grade 1/6 systolic murmur. There is no diastolic murmur. ABDOMEN: Soft, nontender. EXTREMITIES: Without cyanosis or clubbing. There is no peripheral edema. There are intact distal pulses. LABORATORY DATA: Peak troponin is 0.4, this morning is 0.24. Electrolytes this morning sodium is 144, potassium is 4.2, chloride is 116, bicarb is 20, BUN is 23, creatinine 0.8, glucose is 133. Cholesterol was 186, LDL is 107, HDL 70. DATA: EKG this morning reveals sinus rhythm with left anterior fascicular block, poor R-wave progression across the anterior precordial leads, new T-wave inversion inferior and anterior leads consistent with anterior ischemia. Echocardiogram demonstrates generally preserved LV function with moderate left ventricular hypertrophy. No distinct segmental abnormalities, subtle hypokinesis of the apical septum may be discerned in 1 view only. There is aortic sclerosis without stenosis. IMPRESSION: The patient is a 76-year-old female who presents with signs and symptoms crescendo angina, historically elevated troponin consistent with non-ST segment elevation myocardial infarction. Results of studies discussed in detail both yesterday and today. The patient will be referred for diagnostic cardiac catheterization this morning with further recommendations pending the results of imaging. Procedure and risks have been explained in detail and informed consent obtained.
[2017-02-27 12:30] VITALS: BP 104/51; PULSE 59; O2SAT 93
[2017-02-27] MEDS ORDERED: SODIUM CHLORIDE 0.9% 1000ML 250 ML IV PRN (12:36)
--- NOTE | 2017-02-27 12:41 | Procedure Note ---
Pre-Mod Sedation Assessment General Date of Moderate Sedation: Feb 27, 2017. Vital Signs: Vital Signs Past 12 Hours Date Time Temp Pulse Resp B/P (MAP) Pulse Ox O2 Delivery O2 Flow Rate FiO2 02/27/17 12:15 62 16 120/67 (84) 95 Room Air 02/27/17 12:05 62 16 122/67 (85) 95 Room Air 02/27/17 08:51 36.8 54 20 102/45 (64) 98 Room Air 02/27/17 08:00 Room Air 02/27/17 04:00 Room Air 02/27/17 03:54 37.1 63 20 104/42 (62) 95 Room Air Review Cardiovascular: regular rate, rhythm, + systolic murmur Abdomen: normal bowel sounds Lungs: lungs clear Airway Class: II Pre-Sedation Airway Assessment Oral Cavity: WNL Able to Visualize Vocal Cords: Yes Smoking Status: Former Smoker Mallampati Classification: Class II ASA Classification: Class III Procedure Planning Contraindications-for Mod Sed: None Notes The planned sedation has been discussed with the patient and consent obtained. I have identified the patient, determined the appropriateness of sedation and have assessed the patient immediately prior to the procedure. All medicine(s) and interventions are by my order.
[2017-02-27 12:45] VITALS: BP 103/45; PULSE 58; O2SAT 95
[2017-02-27] MEDS ORDERED: ACETAMINOPHEN 325 MG TAB PO PRN (12:45)
[2017-02-27] MEDS ORDERED: NITROGLYCERIN 0.4 MG SL PER TAB CHARGE SL PRN (12:45)
[2017-02-27] MEDS ORDERED: ATROPINE SULFATE 0.1 MG/ML 5ML SYR IV PRN (12:45)
--- NOTE | 2017-02-27 12:50 | [facility] Post Operative Brief Note ---
Preliminary Procedure Note Procedure Date Feb 27, 2017. Pre-Procedure Diagnosis Non STEMI AUC Score 9 Post-Procedure Diagnosis Severe CAD Procedure(s) Performed Coronary Angiography, Left Heart Cath Medical Officer Dr. Ed Sheridan Manager Assurance(s) Yasemin Singh Estimated Blood Loss None (<15cc) Medication(s) Fentanyl (12.5 mcg IV x 2), Heparin (2000u IV), Nicardipine (300mcg intraarterial after sheath insertion after sheath isnertion and prior to removal ), Versed (1mg IV), Lidocaine 1% (local infiltration) Preliminary Findings Right dominant coronary anatomy Heavy calcification of the proximal vessels LM 30% origin LAD long, 90% calcified proximal stenosis, 50% mid vessel LCX OM and PL without obstruction RCA large, dominant with 40% calcified ostial narrowing, diffuse moderate irregularities mid vessel [id number] Recommendations management recommendations (discussion complex PCI vs CABG) Specimens None Fluids (cc crystalloids) 60 Disposition PCU
[2017-02-27 13:17] LABS: PARTIAL THROMBOPLASTIN RATIO 3.2
[2017-02-27] MEDS: ATORVASTATIN 40 MG TAB PO SCH (13:21)
[2017-02-27] MEDS: SODIUM CHLORIDE 0.9% 1000ML 1,000 ML IV SCH ×2 (13:22→16:01)
[2017-02-27] MEDS ORDERED: PERFLUTREN LIPID MICROSPHERE (DEFINITY) IV ONE (13:24)
--- NOTE | 2017-02-27 14:55 | Discharge Summary ---
Discharge Summary Date of Service Feb 27, 2017. Discharge Summary Admission Date: Feb 26, 2017 at 16:02 Discharge Date: Feb 27, 2017 Discharge Disposition: Acute care facility ([facility] ) Principal Diagnosis: SEVERE CAD /NSTEMI Procedures: CARDIAC CATH : Right dominant coronary anatomy Heavy calcification of the proximal vessels LM 30% origin LAD long, 90% calcified proximal stenosis, 50% mid vessel LCX OM and PL without obstruction RCA large, dominant with 40% calcified ostial narrowing, diffuse moderate irregularities mid vessel Consultations: [facility] Medication Reconciliation New Medications: Aspirin (Aspirin EC Low Dose) 81 Mg Ectab 81 MG PO QAM for 30 Days Atorvastatin (Atorvastatin Calcium) 40 Mg Tab 80 MG PO QAM for 30 Days, #60 TAB Metoprolol Tartrate (Lopressor) 25 Mg Tab 12.5 MG PO Q6 for 30 Days, #60 TAB Nitroglycerin (Nitrostat) 0.4 Mg/1 Tab Subl 0.4 MG SL Q5M PRN for Chest Pain, #30 Continued Medications: Calcium/Vitamin D (Os-Edi 500 Plus D) Tab 1 TAB PO DAILY, TAB Citalopram Hydrobromide (Celexa) 20 Mg Tab 20 MG PO HS, TAB Fluticasone Propionate (Nasal) (Flonase Allergy Relief) 50 Mcg/Act Spr 1 SPRAY DALE BID Multivitamin (Multivitamin) Tab 1 TAB PO DAILY, TAB Discontinued Medications: Fish Oil ([place]-3) 1 Ea Cap 1 CAP PO QAM, CAP Glucosamine Sulfate (Glucosamine) 500 Mg Cap 1 CAP PO DAILY Ibuprofen (Advil) 200 Mg Tab 200-600 MG PO UD PRN for Pain, TAB Lutein-Zeaxanthin (Lutein) 1 Cap Cap 1 CAP PO DAILY Simvastatin (Zocor) 40 Mg Tab 40 MG PO HS, TAB Valacyclovir (Valtrex) 500 Mg Tab 500 MG PO UD, TAB FOR COLDSORES Admission Information HPI (per Admitting provider): 76 year old female who presents to the ER with chest pain. Patient reports she is very active with walking and exercising regularly and she noticed a week ago while on her stationary bike that she was very short of breath and had chest tightness. She reports that continually throughout the week she developed shortness of breath and chest tightness with minimal activity. She reports symptoms resolved with rest. She reports associated lightheadedness. Denies any syncopal events. Today after going for a short walk outside she also had diaphoresis with these symptoms. EMS was then called. She was given ASA and nitro with resolution of her pain. Patient notes feeling increasingly fatigued. She woke up in the middle of the night last night and had chest discomfort thinking it was reflux and took TUMS. She unsure of it helped however was able to fall back to sleep. She denies any radiation of the pain into her jaw, neck, or shoulder. She denies abdominal pain, nausea, vomiting, or diarrhea. No fever or chills. She denies urinary symptoms. In the ER, patient's troponin is 0.051, EKG is unchanged from prior. She is currently chest pain free. She was started on IV heparin. Physical Exam (per Admitting): General Appearance: no apparent distress Head: normocephalic Eyes: normal inspection ENT: hearing grossly normal Neck: supple, no JVD Respiratory/Chest: chest non-tender, lungs clear, normal breath sounds, no respiratory distress Cardiovascular: regular rate, rhythm, no edema, normal peripheral pulses Abdomen/GI: normal bowel sounds, non tender, soft Extremities/Musculoskelatal: normal inspection, no calf tenderness Neurologic/Psych: no motor/sensory deficits, alert, normal mood/affect, oriented x 3 Skin: normal color, warm/dry Hospital Course NSTEMI /CHEST PAIN - patient presenting with worsening exertional chest pain x 1 week; in the ER, troponin 0.051, EKG unchanged from prior - risk factors: + family history, HLD - chest pain relieved with nitro with EMS - CTA of chest -no PE , pt developed severe substernal pain , discomfort during scan , EKG shows ST elevation on V2 -resolved AM EKG shows T wave inversion on ant /lat leads appreciate input form cardiology IV Lopressor 5 mg X1 ordered remained on IV heparin remains asymptomatic overnight on Aspirin , beta angelic , statin appreciate cardiology eval ECHO : no wall motion abnormality noted scheduled to cardiac cath and possible intervention today - takes simvastatin 40mg -changed to atorvastatin 80mg -pt is s/p Cardiac cath today shows : Right dominant coronary anatomy Heavy calcification of the proximal vessels LM 30% origin LAD long, 90% calcified proximal stenosis, 50% mid vessel LCX OM and PL without obstruction RCA large, dominant with 40% calcified ostial narrowing, diffuse moderate irregularities mid vessel pt will need complex intervention PCI vs CABG updated by Cardiology Dr Sheridan -pt will be transferred to [facility] for further Cardiology intervention ANXIETY - continue citalopram DVT PROPHYLAXIS - on IV heparin FULL CODE DISPOSITION Transfer to [facility] today Total time spent on discharge = 35 MINS This includes examination of the patient, discharge planning, medication reconciliation, and communication with other providers. Discharge Instructions DI: Myocardial v4 Discharge Instructions Date of Service Feb 27, 2017. Admission Reason for Admission: Nstemi(Non-St Elevated Myocardial Infarction) Discharge Discharge Diagnosis / Problem: severe cad /NSTEMI Discharge Goals Goal(s): Therapeutic intervention Activity Recommendations Activity Limitations: as noted below (as tolerated ) . Instructions / Follow-Up Instructions / Follow-Up PT IS TRANSFERRED TO [facility] IN [place] FOR FURTHER CARDIAC INTERVENTION Lifestyle Changes: * Maintain a healthy weight. Get help to lose any extra pounds. * Cut back on salt. * Limit canned, dried, packaged, and fast foods. * Don't add salt to your food. * Season foods with herbs instead of salt when you cook. * Break the smoking habit. Enroll in a stop-smoking program to improve your chances of success. * Limit fatty foods. * Ask your doctor about having your lipid levels checked regularly. * Build up your activity according to your doctor's recommendation. * Ask your doctor when it's okay to resume sexual activity. * Try to manage stress. Follow Up: It is important for you to keep your follow up appointments with your medical provider. Current Hospital Diet Patient's current hospital diet: AHA Diet (Heart Healthy) Discharge Diet Recommended Diet: AHA Diet (Heart Healthy) Pending Studies Studies pending at discharge: no Laboratory Results Lipid Panel Test 02/27/17 05:11 Range/Units Triglycerides Level 46 0-150 mg/dl Cholesterol Level 186 0-200 mg/dl HDL Cholesterol 70 mg/dl Cholesterol/HDL Ratio 2.7 LDL Cholesterol, Calculated 107 mg/dl Medical Emergencies . Who to Call and When: Medical Emergencies: If at any time you feel your situation is an emergency, please call 911 immediately. Call 911 immediately or go to your nearest Emergency Room if you experience any of the following: Warning Signs and Symptoms of a Heart Attack * Chest pain that is not relieved by medication * Shortness of breath . Non-Emergent Contact Non-Emergency issues call your: Primary Care Provider . . "Provider Documentation" section prepared by Eliza Dela Cruz. . AMI Core Measures Reason no ASA as I/P: Treatment provided - N/A Reason no ASA at D/C: Treatment provided - N/A Reason no statin as I/P: Treatment provided - N/A Reason no statin at D/C: Treatment provided - N/A VTE Core Measure Inpt VTE Proph given/why not?: Other Anticoagulation Additional Copies To Ed Sheridan M.D.
[2017-02-27] MEDS ORDERED: LPR25 PO (14:56)
[2017-02-27] MEDS ORDERED: ASPEC81 PO (14:56)
[2017-02-27] MEDS ORDERED: NTRSLP4 SL (14:56)
[2017-02-27] MEDS ORDERED: LPT40 PO (14:56)
--- NOTE | 2017-02-27 14:58 | Discharge Instructions ---
Discharge Instructions Date of Service Feb 27, 2017. Admission Reason for Admission: Nstemi(Non-St Elevated Myocardial Infarction) Discharge Discharge Diagnosis / Problem: severe cad /NSTEMI Discharge Goals Goal(s): Therapeutic intervention Activity Recommendations Activity Limitations: as noted below (as tolerated ) . Instructions / Follow-Up Instructions / Follow-Up PT IS TRANSFERRED TO [facility] IN [place] FOR FURTHER CARDIAC INTERVENTION Lifestyle Changes: * Maintain a healthy weight. Get help to lose any extra pounds. * Cut back on salt. * Limit canned, dried, packaged, and fast foods. * Don't add salt to your food. * Season foods with herbs instead of salt when you cook. * Break the smoking habit. Enroll in a stop-smoking program to improve your chances of success. * Limit fatty foods. * Ask your doctor about having your lipid levels checked regularly. * Build up your activity according to your doctor's recommendation. * Ask your doctor when it's okay to resume sexual activity. * Try to manage stress. Follow Up: It is important for you to keep your follow up appointments with your medical provider. Current Hospital Diet Patient's current hospital diet: AHA Diet (Heart Healthy) Discharge Diet Recommended Diet: AHA Diet (Heart Healthy) Pending Studies Studies pending at discharge: no Laboratory Results Lipid Panel Test 02/27/17 05:11 Range/Units Triglycerides Level 46 0-150 mg/dl Cholesterol Level 186 0-200 mg/dl HDL Cholesterol 70 mg/dl Cholesterol/HDL Ratio 2.7 LDL Cholesterol, Calculated 107 mg/dl Medical Emergencies . Who to Call and When: Medical Emergencies: If at any time you feel your situation is an emergency, please call 911 immediately. Call 911 immediately or go to your nearest Emergency Room if you experience any of the following: Warning Signs and Symptoms of a Heart Attack * Chest pain that is not relieved by medication * Shortness of breath . Non-Emergent Contact Non-Emergency issues call your: Primary Care Provider . . "Provider Documentation" section prepared by Eliza Dela Cruz. . AMI Core Measures Reason no ASA as I/P: Treatment provided - N/A Reason no ASA at D/C: Treatment provided - N/A Reason no statin as I/P: Treatment provided - N/A Reason no statin at D/C: Treatment provided - N/A VTE Core Measure Inpt VTE Proph given/why not?: Other Anticoagulation
[2017-02-27 15:32] VITALS: BP 106/74; PULSE 62; TEMP 36.6; O2SAT 97
--- NOTE | 2017-02-27 16:35 | CARDIAC CATH REPORT ---
REFERRING PHYSICIAN: Dr. Dela Cruz. INDICATIONS: Non-ST segment elevation myocardial infarction crescendo angina. BRIEF CARDIAC HISTORY: The patient is a 76-year-old female with 1-2 months history of increasing left shoulder pain and arm pain culminating in hospitalization after severe rest pain and minimal exertion and discomfort on 02/26/2017. The patient had manifested no signs of congestive heart failure. Cardiac enzymes were elevated consistent with non-ST segment elevation myocardial infarction with peak troponin I at 0.46. She had evolution of ST-T wave abnormalities in inferolateral and anterior leads. The patient is referred for diagnostic cardiac catheterization. ACCESS: Right radial artery. CATHETERS: A 6-Mexican long glide sheath, 5-Mexican brachial 3.5, 5-Mexican straight pigtail. CONTRAST: Nonionic x74 mL. IV FLUIDS: Normal saline x60 mL. MEDICATIONS: Access site was anesthetized locally with 1% lidocaine. After arterial sheath is inserted, patient received intra-arterial injection of 300 mcg of nicardipine as well as an additional 300 mcg of nicardipine prior to sheath removal. Heparin 2000 unit bolus was given after central access obtained. SEDATION: The patient sedation time start was 11 38, end was 12:05. The patient received 1 mg IV Versed and 12.5 mcg of fentanyl x2. COMPLICATIONS: None. RADIATION EXPOSURE: 3.4 minutes of fluoroscopy, 757 milligrays, TAP score of 4999. Sedation automobile mechanic supervisor was present. RESULTS: CORONARY ANGIOGRAPHY: On initial fluoroscopy right there was heavy calcification of the proximal portions of the right coronary artery and left coronary anatomy: LEFT MAIN: Left main is long, but modest in caliber and bifurcates to give rise to left anterior descending and left circumflex. There is calcification in the left main with a 30% ostial taper. LEFT ANTERIOR DESCENDING: Left anterior descending is type 3 in distribution and gives rise to 2 small diagonal branches and a moderately large third diagonal branch which bifurcates. Within the left anterior descending, there is a long area of calcification and stenosis within its proximal portion, narrowing the vessel by 90%. There is moderate irregularities throughout with an additional 50% narrowing just proximal to the third diagonal branch. Origins of both 2 tiny first and second diagonals are narrowed to moderate degree. LEFT CIRCUMFLEX: Left circumflex is small, gives rise to posterolateral branch and a single marginal branch, large atrial branch with mild irregularities notable. RIGHT CORONARY ARTERY: The right coronary artery is dominant and moderately large in caliber. It gives rise to a right ventricular branch in its mid portion, long early takeoff posterior descending artery and along the AV groove 3 posterior ventricular branches is the most distal reaching well to the apex. Within the right coronary artery, there is calcification in its proximal third with ostial taper 40%. There is moderate irregularities throughout the mid vessel with mild ectasia at the acute margin. There is moderate irregularities in the distal vessels as well. HEMODYNAMICS: Initial aortic root pressure is 123/51 with a mean of 79. LV pressure was 145/14 with an EDP of 24. On pullback, the aortic root, there is no transaortic valve gradient. Final closure pressure was 134/60 with a mean of 93. FINAL IMPRESSION: 1. Heavily calcified right dominant coronary anatomy. 2. Long high grade stenosis, severe 90% within the proximal left anterior descending with moderately heavy calcification. 3. Moderate ostial calcification and narrowing of the left main and the right coronary artery. 4. 50% narrowing in the mid left anterior descending. 5. Elevated left end-diastolic pressure. RECOMMENDATIONS: The patient should be referred for reevaluation for complex PCI versus coronary artery surgical revascularization. SAMUEL
[2017-03-20] MEDS ORDERED: PLV75 PO (15:11)
[2017-03-20] MEDS ORDERED: LPR25 PO (15:11)
== END 2017-02-27 17:57 | disposition short-term general hospital (02) | DRG 282 ==
LOC: EDBD 13:32 → C.EDB 13:33 → C.2E 16:02 → CANRESERV 16:13 → ENRESERV 16:13
PROVIDERS: ADMIT Internal Medicine; ATTEND Hospitalist
PROC: B211YZZ Fluoroscopy of Multiple Coronary Arteries using Other Contrast (ICD-10-PCS; principal; 2017-02-27 11:26)
PROC: 4A023N7 Measurement of Cardiac Sampling and Pressure, Left Heart, Percutaneous Approach (ICD-10-PCS; principal; 2017-02-27 11:26)
DX: I21.4 Non-ST elevation (NSTEMI) myocardial infarction (principal); I25.10 Atherosclerotic heart disease of native coronary artery without angina pectoris; E78.5 Hyperlipidemia, unspecified; F41.9 Anxiety disorder, unspecified; Z51.81 Encounter for therapeutic drug level monitoring; Z79.899 Other long term (current) drug therapy; Z87.891 Personal history of nicotine dependence; Z82.49 Family history of ischemic heart disease and other diseases of the circulatory system

== ENCOUNTER 2017-03-19 11:23 | Observation (INO) | payer OTHER, BC ==
[~2017-03-19] VITALS: Ht 157.5 cm; Wt 58.8 kg
[~2017-03-19 11:23] MED LIST: ASPEC81 PO; CALC500C70 PO; CITA20TA9 PO; FLUT0.15 NAE; LPR25 PO; LPT40 PO; MULT-506 PO; NTRSLP4 SL
[2017-03-19] MEDS ORDERED: METO25TA56 PO (11:59)
[2017-03-19] MEDS ORDERED: CLOP1TAB15 PO (11:59)
[2017-03-19] MEDS ORDERED: ASPIRIN 81 MG CHEW PO STA (12:06)
[2017-03-19] MEDS: NITROGLYCERIN 0.4 MG SL PER TAB CHARGE SL PRN ×2 (12:18→13:10)
--- NOTE | 2017-03-19 12:19 | DIAGNOSTIC IMAGING REPORT ---
CHEST ONE VIEW PORTABLE CLINICAL HISTORY: Chest Pain dyspnea COMPARISON STUDY: 02/26/2017 FINDINGS: The bones soft tissues and hemidiaphragms are normal. The cardiomediastinal silhouette is normal. The lungs are clear. The pulmonary vasculature is normal. IMPRESSION: Negative chest. The above report was generated using voice recognition software. It may contain grammatical, syntax or spelling errors. Electronically signed by: Mike Rocha M.D. 03/19/2017 12:18 PM Dictated Date/Time: 03/19/2017 12:17 PM
[2017-03-19 12:25] LABS: BASO % 0.8 %; BASO ABS # 0.04 K/uL (0-0.2); COMPLETE YES; EOS % 2.1 %; HEMATOCRIT 42.5 % (37-47); LYMPH % 19.7 %; LYMPH ABS # 1.02 K/uL (1.2-3.4); MEAN CELL VOLUME 90.6 fL (80-100); MEAN CORPUSCULAR HEMOGLOBIN 30.1 pg (25-34); MEAN CORPUSCULAR HGB CONC 33.2 g/dl (32-36); MEAN PLATELET VOLUME 11.1 fL (7.4-10.4); MONO % 10.8 %; NEUT % 66.6 %; PLATELET COUNT 231 K/uL (130-400); RED BLOOD COUNT 4.69 M/uL (4.2-5.4); WHITE BLOOD COUNT 5.17 K/uL (4.8-10.8)
[2017-03-19 12:33] LABS: BLOOD UREA NITROGEN 24 mg/dl (7-18); BUN/CREATININE RATIO 24.8 (10-20); CALCIUM 9.6 mg/dl (8.5-10.1); CARBON DIOXIDE 27 mmol/L (21-32); CHLORIDE 108 mmol/L (98-107); CREATININE 0.97 mg/dl (0.60-1.20); GLUCOSE 94 mg/dl (70-99); POTASSIUM 4.2 mmol/L (3.5-5.1); SODIUM 142 mmol/L (136-145)
[2017-03-19] MEDS ORDERED: SODIUM CHLORIDE 0.9% 500ML 500 ML IV STA (13:33)
[2017-03-19 13:59] VITALS: O2SAT 93; Ht 157.5 cm; Wt 58.8 kg
[2017-03-19] MEDS ORDERED: MAGNESIUM HYDROXIDE SUSP 30 ML UDC PO PRN (14:00)
[2017-03-19] MEDS ORDERED: POLYETHYLENE (MIRALAX) 17 GM PACK PO PRN (14:00)
[2017-03-19] MEDS ORDERED: NITROGLYCERIN 0.4 MG SL PER TAB CHARGE SL PRN ×2 (14:00)
[2017-03-19] MEDS ORDERED: ACETAMINOPHEN 325 MG TAB PO PRN (14:00)
[2017-03-19] MEDS ORDERED: ZOLPIDEM TARTRATE 5 MG TAB PO PRN (14:00)
[2017-03-19] MEDS ORDERED: ALUMINUM/MAGNESIUM/SIMETH (MAALOX MAX) 30 ML UDC PO PRN (14:00)
[2017-03-19] MEDS ORDERED: ONDANSETRON INJ 2 MG/ML 2 ML VIAL IV PRN (14:00)
[2017-03-19 14:12] VITALS: O2SAT 97
[2017-03-19 14:28] LABS: PROTHROMBIN TIME (PATIENT) 10.5 SECONDS (9.0-12.0)
[2017-03-19] MEDS ORDERED: IV FLUIDS COMPLETED PRN (14:45)
[2017-03-19 14:46] VITALS: BP 98/65; PULSE 56; TEMP 36.3; O2SAT 99
[2017-03-19] MEDS ORDERED: OLOP0.1S2 OP (14:48)
[2017-03-19] MEDS ORDERED: SALI1SPR3 NAE (14:48)
[2017-03-19] MEDS ORDERED: OMEG10007 PO (14:48)
[2017-03-19] MEDS ORDERED: LUTE10TA PO (14:48)
[2017-03-19] MEDS ORDERED: LPT40 PO (14:48)
[2017-03-19] MEDS ORDERED: VALA1TAB2 PO (14:48)
[2017-03-19] MEDS ORDERED: GLUC500C4 PO (14:48)
[2017-03-19] MEDS ORDERED: ALPR0.25 PO (14:48)
[2017-03-19] MEDS ORDERED: CALC500C3 PO (14:48)
[2017-03-19] MEDS ORDERED: ARTISOL12 OP (14:48)
[2017-03-19] MEDS ORDERED: PRLSRP PO (14:48)
[2017-03-19] MEDS ORDERED: SODIUM CHLORIDE 0.65% NA SOLN 45 ML (OCEAN) NAE SCH (15:00)
[2017-03-19] MEDS ORDERED: ARTIFICIAL TEARS OP SOLN OP PRN ×2 (15:00)
[2017-03-19] MEDS ORDERED: ALPRAZOLAM 0.25 MG TAB PO PRN (15:00)
[2017-03-19] MEDS ORDERED: CALCIUM CARBONATE 500 MG CHEWABLE PO PRN (15:00)
--- NOTE | 2017-03-19 18:21 | Cardiology Consultation ---
Cardiology Consultation Date of Consultation: Mar 19, 2017 History of Present Illness Ayala Doherty is a 77 year old female seen in cardiology consultation per the quest of Dr Dela Cruz for the evaluation of chest discomfort. The patient's cardiac history dates back to last month in February 2017 when she presented with symptoms of exertional shortness of breath, chest tightness, and GI upset. She was found to have anteroseptal ST-T wave changes and a mild elevation in troponin I with peak level of 0??463 MG per mL on 02/26/17. She had been seen in cardiology consultation by Dr. Mccarthy of our practice and was diagnosed with a non-ST segment elevation myocardial infarction and she underwent cardiac catheterization the next day 02/27/[address] Sheridan and she is found to have coronary artery calcification of the proximal left and right coronary artery systems with a high-grade proximal LAD stenosis as well as a 50% more distal stenosis. Non-obstructive 30% distal left main disease was also described. Proximal LAD stenosis was technically complex with dense calcification and she was ultimately transferred to [facility] for high risk PCI versus consideration toward single vessel CABG. She subsequently underwent percutaneous coronary intervention with placement of overlapping drug-eluting stents to the proximal left anterior senna coronary artery on 03/01/17 with an excellent angiographic result. The patient states that she has been feeling well in the interim, she was looking for discharge in cardiac rehabilitation. She has been adherent to her medications and has not missed any aspirin or clopidogrel. She notes that yesterday she had had some symptoms of feeling dyspepsia with thick saliva in her throat that she thought was perhaps reminiscent of her past GERD symptoms. This morning after she got up and started her daily routine she noted onset of shortness of breath and indigestion. She rested and took a dose of sublingual nitroglycerin and felt that perhaps his symptoms were better. She rested for a while and then asked her to help her make her bed with the exertion of making her bed she once again felt poorly with shortness of breath she also felt heavy perspiration and felt her heart racing and she was ill in appearance. She presented to the emergency room. At present, her symptoms are completely resolved. She has one EKG on her chart that was performed today 03/19 11:38 AM and reveals sinus rhythm at 60 bpm with incomplete right bundle branch block and T-wave inversions in leads V1 and V2. Compared to her most recent EKG performed at [facility] on 03/01/17, T wave inversions were noted in V1 and V2 at that time, but they are significantly less prominent in lead V2 at present and I would say that the current EKG is actually better than her most recent EKG performed medially after her LAD stenting. She is pleasant and conversant. She states that she has been doing some light walking and trying to increase her activity. Past Medical/Surgical History Problem List: Medical Problems: (1) Anxiety (2) Arthritis (3) CAD (coronary artery disease) (4) Chest pain (5) HLD (hyperlipidemia) Surgical Problems: (1) H/O oophorectomy (2) H/O thumb surgery (3) History of arthroscopy of right shoulder (4) History of cataract surgery (5) S/P coronary artery stent placement History Social History: She resides in [facility]. Her [id number] is a local physician, Mitzy Doherty. She has a nonsmoker since the age of 30. She rarely uses a call if beverages. Family History: Her father presumed heart disease at the age of 49. Her mother lived until age 92 but did pass away of the presumed myocardial infarction as did her aunt at age 86. Review Of Systems See above for pertinent positives & negatives. A total of 10 systems reviewed and were otherwise negative. Allergies Coded Allergies: No Known Allergies (Unverified , 02/26/17) Medications Reported Home Medications Medications Dose Route/Sig Max Daily Dose Days Date Category Dose Instructions Saline Nasal Hibernia (Saline) 0.65 % Spr 1 Hibernia DALE UD 03/19/17 Reported Flush each nostril morning and night and every 2-4 hours as needed for nasal dryness or congestion. Artificial Tears (Artificial Tear Solution) 1 Thu Thu 1 Drops OP TID PRN 03/19/17 Reported Xanax (Alprazolam) 0.25 Mg Tab 0.25 Mg PO BID PRN 03/19/17 Reported Glucosamine (Glucosamine Sulfate) 500 Mg Cap 500 Mg PO DAILY 03/19/17 Reported Prilosec (Omeprazole) 10 Mg Pack 10 Mg PO DAILY PRN 03/19/17 Reported Tums (Calcium Carbonate) 500 Mg Chew 2 Tabs PO HS PRN 03/19/17 Reported Lutein 10 Mg Tab 10 Mg PO DAILY 03/19/17 Reported Patanol 0.1% Oph (Olopatadine Hcl) 0.1 % Thu 1 Drop OP BID PRN 03/19/17 Reported Valtrex (Valacyclovir Hcl) 1 Gm Tab 1,000 Mg PO BID PRN 03/19/17 Reported Clayton-3 (Fish Oil) 1 Ea Cap 1 Cap PO DAILY 03/19/17 Reported Atorvastatin Calcium (Atorvastatin) 40 Mg Tab 80 Mg PO QPM 30 03/19/17 Rx Plavix (Clopidogrel Bisulfate) Unknown Strength Tab 1 Tab PO DAILY 03/19/17 Reported Lopressor (Metoprolol Tartrate) 25 Mg Tab 12.5 Mg PO Q12 03/19/17 Reported Aspirin EC Low Dose (Aspirin) 81 Mg Ectab 81 Mg PO QAM 30 02/27/17 Rx Nitrostat (Nitroglycerin) 0.4 Mg/1 Tab Subl 0.4 Mg SL Q5M PRN 02/27/17 Rx Multivitamin (Multivitamins) Tab 1 Tab PO DAILY 02/26/17 Reported Os-Edi 500 Plus D (Calcium/Vitamin D) Tab 1 Tab PO DAILY 02/26/17 Reported Flonase Allergy Relief (Fluticasone Propionate (Nasal)) 50 Mcg/Act Spr 1 Hibernia DALE BID 02/26/17 Reported Celexa (Citalopram Hydrobromide) 20 Mg Tab 20 Mg PO HS 02/26/17 Reported Physical Exam Vital Signs (Last 8hrs): Last 8 Hrs Date Time Temp Pulse Resp B/P (MAP) Pulse Ox O2 Delivery O2 Flow Rate FiO2 03/19/17 16:02 Room Air 03/19/17 14:46 36.3 56 18 98/65 (76) 99 Room Air 03/19/17 14:12 64 18 110/60 97 Room Air 03/19/17 13:59 93 Room Air 03/19/17 13:23 62 14 93/59 93 Room Air 03/19/17 13:10 62 18 100/59 97 Room Air 03/19/17 12:48 58 20 105/67 97 Room Air 03/19/17 11:58 75 03/19/17 11:50 98 Room Air 03/19/17 11:50 77 22 126/67 100 Room Air 03/19/17 11:27 36.7 84 20 103/68 98 Room Air General Appearance: Alert and Oriented x3. NAD. Head: Normocephalic Atraumatic. Eyes: PERRLA, EOMI, conjunctiva and sclera clear Neck: Supple. No carotid bruits noted. No JVD. No HJD. Respiratory: Breath sounds clear to auscultation bilaterally. No w/r/r. Cardiovascular: Reg rate and rhythm. S1 and S2 noted. No murmurs, rubs, gallops. PMI non displace. Abdomen: Normal bowel sounds, soft nontender. no abdominal bruits. Extremities: No edema, no clubbing or cyanosis. distal pulses 2/4 bilaterally. Neuro: No focal deficits. Psychiatric: Normal affect. Data Last Resulted 03/19/17 11:50 Red Blood Count 4.69, Mean Corpuscular Volume 90.6, Mean Corpuscular Hemoglobin 30.1, Mean Corpuscular Hemoglobin Concent 33.2, Mean Platelet Volume 11.1, Neutrophils (%) (Auto) 66.6, Lymphocytes (%) (Auto) 19.7, Monocytes (%) (Auto) 10.8, Eosinophils (%) (Auto) 2.1, Basophils (%) (Auto) 0.8, Neutrophils # (Auto ) 3.44, Lymphocytes # (Auto) 1.02, Monocytes # (Auto) 0.56, Eosinophils # (Auto ) 0.11, Basophils # (Auto) 0.04 Last Resulted 03/19/17 11:50 Past 24 Hours Test 03/19/17 11:50 Range/Units Creatine Kinase MB < 0.5 L 0.5-3.6 ng/ml Creatine Kinase MB Ratio 0-3.0 Prothromb Time International Ratio 1.0 0.9-1.1 Prothrombin Time 10.5 9.0-12.0 SECONDS Total Creatine Kinase 43 26-192 U/L Troponin I < 0.015 0-0.045 ng/ml Telemetry reveals sinus rhythm. EKG as described above. Assessment & Plan Impression: 77-year-old female 1. Exertional shortness of breath, chest discomfort, some dyspepsia as well is reminiscent of the symptoms that she felt at the time of presentation with an anterior non-ST segment elevation myocardial infarction last month, approximately 20 days ago, at which time she was found to have a high-grade heavily calcified proximal LAD lesion on diagnostic cardiac catheterization and she was transferred to [facility] for high risk PCI was subsequently performed on . She has mild residual distal left main disease and a 50% mid LAD stenosis noted. 2. Dyslipidemia 3. History of anxiety 4. History of gastroesophageal reflux disease Discussion/recommendations: The patient's EKG is actually improved compared to that performed initially after her recent stent procedure. Cardiac enzymes are negative times one and she feels well at present. Her symptoms however are very concerning as they're reminiscent of her presenting symptoms noted last month before PCI. At present, like to continue her outpatient cardiac medications including aspirin, clopidogrel, atorvastatin, metoprolol tartrate. Is noted that her blood pressure somewhat low at baseline. I'm not certain if her symptoms that occurred when she was making the bed or anginal-like character , or perhaps a side effect of the sublingual nitroglycerin that she had taken as this may have induced significant hypotension as her systolic blood pressure tends to run in the 100 mmHg range at baseline and taking sublingual nitroglycerin may make her hypotensive and feel ill. Will plan on adding systemic anticoagulation with unfractionated heparin infusion should her cardiac enzymes elevate above the limit of normal. Resting echocardiogram will be planned for tomorrow. If her cardiac enzymes remain negative and her resting echocardiogram reveals stable findings, we'll consider proceeding with exercise based stress test versus pharmacologic based stress test. Would make her nothing by mouth after midnight, and she is not have caffeine and she needs Lexiscan. Vincenzo Mabry DO, FACC, FACOI Associate Hearing Therapy Teacher [facility] [place], [facility]
--- NOTE | 2017-03-19 18:27 | EMERGENCY ROOM VISIT NOTE ---
History Report prepared by Selwyn: Jesus Leary Under the Supervision of: Dr. Lon Schofield D.O. First contact with patient: 11:57 Chief Complaint: CARDIAC ASSESSMENT Stated Complaint: SOB, CHEST HEAVINESS, LIGHTHEADED, ACID REFLUX Nursing Triage Summary: heaviness in the chest since last night thought it was indegestin and got up this am and took a nitroglycerin, was making the bed felt very funny. Ntg did not get rid of the heaviness. Heart attack was three weeks ago and had two stents placed. History of Present Illness The patient is a 77 year old female who presents to the Emergency Room with complaints of shortness of breath that began this morning. 2 weeks ago, the patient was seen in the ED for the same symptoms. She diagnosed with a NSTEMI and sent to [facility] for cardiac stent placement. She received 2 cardiac stents in her LAD. She feels that her current symptoms are the same as those before she had the NSTEMI. This morning, the patient was having, what she describes as indigestion. Her symptoms then progressed to getting short of breath with a tightness in her chest. Her shortness of breath is exacerbated with exertion, and mildly improved with rest. She notes that since her procedure two weeks ago, she would get mildly short of breath intermittently, but nothing like this. She took a nitroglycerin with some mild improvement. She also took her Aspirin 81 mg and her Plavix. She has not missed any of her regular medications. Source of History: patient Onset: this morning Position: other (Respiratory System) Symptom Intensity: mild Quality: other (Shortness of breath) Timing: constant Modifying Factors (Worsening): exertion Modifying Factors (Relieving): rest Associated Symptoms: + chest pain (tightness) Review of Systems See HPI for pertinent positives & negatives. A total of 10 systems reviewed and were otherwise negative. Past Medical & Surgical Medical Problems: (1) Anxiety (2) Arthritis (3) CAD (coronary artery disease) (4) Chest pain (5) HLD (hyperlipidemia) Surgical Problems: (1) H/O oophorectomy (2) H/O thumb surgery (3) History of arthroscopy of right shoulder (4) History of cataract surgery (5) S/P coronary artery stent placement Family History FH: heart disease FATHER ( from [place] at age 49) MOTHER ( from [place] at age 92) AUNT ( from [place] at age 80) Social History Smoking Status: Never Smoker Alcohol Use: occasionally Drug Use: none Marital Status: Housing Status: lives with significant other Occupation Status: retired Current/Historical Medications Scheduled Aspirin (Aspirin EC Low Dose), 81 MG PO QAM Atorvastatin (Atorvastatin Calcium), 80 MG PO QPM Calcium/Vitamin D (Os-Edi 500 Plus D), 1 TAB PO DAILY Citalopram Hydrobromide (Celexa), 20 MG PO HS Clopidogrel (Plavix), 1 TAB PO DAILY Fish Oil ([place]-3), 1 CAP PO DAILY Fluticasone Propionate (Nasal) (Flonase Allergy Relief), 1 [place] BID Glucosamine Sulfate (Glucosamine), 500 MG PO DAILY Lutein (Lutein), 10 MG PO DAILY Metoprolol Tartrate (Lopressor) (Lopressor), 12.5 MG PO Q12 Multivitamin (Multivitamin), 1 TAB PO DAILY Saline (Saline Nasal [place]), 1 [place] UD Scheduled PRN Alprazolam (Xanax), 0.25 MG PO BID PRN for Anxiety Artificial Tear Solution (Artificial Tears), 1 DROPS OP TID PRN for DRYNESS Calcium Carbonate (Tums), 2 TABS PO HS PRN for acid reflux Nitroglycerin (Nitrostat), 0.4 MG SL Q5M PRN for Chest Pain Olopatadine Hcl (Patanol 0.1% Oph), 1 DROP OP BID PRN for UD Omeprazole (Prilosec), 10 MG PO DAILY PRN for acid reflux Valacyclovir Hcl (Valtrex), 1,000 MG PO BID PRN for cold sore Allergies Coded Allergies: No Known Allergies (Unverified , 02/26/17) Physical Exam Vital Signs Date Time Temp Pulse Resp B/P (MAP) Pulse Ox O2 Delivery O2 Flow Rate FiO2 03/19/17 13:23 62 14 93/59 93 Room Air 03/19/17 13:10 62 18 100/59 97 Room Air 03/19/17 12:48 58 20 105/67 97 Room Air 03/19/17 11:58 75 03/19/17 11:50 98 Room Air 03/19/17 11:50 77 22 126/67 100 Room Air 03/19/17 11:27 36.7 84 20 103/68 98 Room Air Pain Rating (0-10): 0 Physical Exam GENERAL: alert, disheveled appearing, well nourished, no distress, non-toxic, sitting up in bed EYE EXAM: normal conjunctiva OROPHARYNX: no exudate, no erythema, lips, buccal mucosa, and tongue normal and mucous membranes are moist NECK: supple, no nuchal rigidity, no adenopathy, non-tender LUNGS: Clear to auscultation. Normal chest wall mechanics HEART: no murmurs, S1 normal and S2 normal CHEST: No reproducible anterior chest wall tenderness ABDOMEN: abdomen soft, non-tender, normo-active bowel sounds, no masses, no rebound or guarding. BACK: Back is symmetrical on inspection and there is no deformity, no midline tenderness, no CVA tenderness. SKIN: no rashes and no bruising UPPER EXTREMITIES: upper extremities are grossly normal. LOWER EXTREMITIES: No pitting edema. Calves equal bilaterally. NEURO EXAM: Normal sensorium, cranial nerves II-XII grossly intact, normal speech, no gross weakness of arms, no gross weakness of legs. Medical Decision & Procedures ER Provider Diagnostic Interpretation: Radiology results as stated below per my review and the radiologist's interpretation: CHEST ONE VIEW PORTABLE CLINICAL HISTORY: Chest Pain dyspnea COMPARISON STUDY: 02/26/2017 FINDINGS: The bones soft tissues and hemidiaphragms are normal. The cardiomediastinal silhouette is normal. The lungs are clear. The pulmonary vasculature is normal. IMPRESSION: Negative chest. The above report was generated using voice recognition software. It may contain grammatical, syntax or spelling errors. Electronically signed by: Mike Rocha M.D. 03/19/2017 12:18 PM Dictated Date/Time: 03/19/2017 12:17 PM Laboratory Results 03/19/17 11:50 Red Blood Count 4.69, Mean Corpuscular Volume 90.6, Mean Corpuscular Hemoglobin 30.1, Mean Corpuscular Hemoglobin Concent 33.2, Mean Platelet Volume 11.1, Neutrophils (%) (Auto) 66.6, Lymphocytes (%) (Auto) 19.7, Monocytes (%) (Auto) 10.8, Eosinophils (%) (Auto) 2.1, Basophils (%) (Auto) 0.8, Neutrophils # (Auto ) 3.44, Lymphocytes # (Auto) 1.02, Monocytes # (Auto) 0.56, Eosinophils # (Auto ) 0.11, Basophils # (Auto) 0.04 03/19/17 11:50 Test 03/19/17 11:50 White Blood Count 5.17 K/uL (4.8-10.8) Red Blood Count 4.69 M/uL (4.2-5.4) Hemoglobin 14.1 g/dL (12.0-16.0) Hematocrit 42.5 % (37-47) Mean Corpuscular Volume 90.6 fL (80-100) Mean Corpuscular Hemoglobin 30.1 pg (25-34) Mean Corpuscular Hemoglobin Concent 33.2 g/dl (32-36) Platelet Count 231 K/uL (130-400) Mean Platelet Volume 11.1 fL (7.4-10.4) Neutrophils (%) (Auto) 66.6 % Lymphocytes (%) (Auto) 19.7 % Monocytes (%) (Auto) 10.8 % Eosinophils (%) (Auto) 2.1 % Basophils (%) (Auto) 0.8 % Neutrophils # (Auto) 3.44 K/uL (1.4-6.5) Lymphocytes # (Auto) 1.02 K/uL (1.2-3.4) Monocytes # (Auto) 0.56 K/uL (0.11-0.59) Eosinophils # (Auto) 0.11 K/uL (0-0.5) Basophils # (Auto) 0.04 K/uL (0-0.2) RDW Standard Deviation 47.0 fL (36.4-46.3) RDW Coefficient of Variation 14.3 % (11.5-14.5) Immature Granulocyte % (Auto) 0.0 % Immature Granulocyte # (Auto) 0.00 K/uL (0.00-0.02) Prothrombin Time 10.5 SECONDS (9.0-12.0) Prothromb Time International Ratio 1.0 (0.9-1.1) Anion Gap 7.0 mmol/L (3-11) Est Creatinine Clear Calc Drug Dose 38.4 ml/min Estimated GFR () 65.3 Estimated GFR (Non- 56.3 BUN/Creatinine Ratio 24.8 (10-20) Calcium Level 9.6 mg/dl (8.5-10.1) Total Creatine Kinase 43 U/L (26-192) Creatine Kinase MB < 0.5 ng/ml (0.5-3.6) Creatine Kinase MB Ratio (0-3.0) Troponin I < 0.015 ng/ml (0-0.045) Laboratory results per my review. Medications Administered Medications (Trade) Dose Ordered Sig/Susanna Route Start Time Stop Time Status Last Admin Dose Admin Nitroglycerin (Nitrostat Tab) 0.4 mg Q5M PRN SL 03/19/17 12:15 03/19/17 14:35 DC 03/19/17 13:10 0.4 MG Aspirin (Aspirin Chew) 324 mg NOW STAT PO 03/19/17 12:06 03/19/17 12:08 DC 03/19/17 12:18 324 MG ECG Indication: SOB/dyspnea Rate (beats per minute): 68 Rhythm: sinus rhythm Findings: T-wave inversion (Septal), left axis deviation Comparison ECG Date: 27 February 2017 Change: T-waves have improved. ED Course ED COURSE: Vital signs were reviewed and showed hypertension. The patients medical record was reviewed. She was recently seen here in the ED 2 weeks ago, had a NSTEMI while in [place], and was transferred to [facility] for the placement of cardiac stents. The above diagnostic studies were performed and reviewed. ED treatments and interventions as stated above. 1157: The patient was evaluated in room C1B. A complete history and physical examination was performed. 1206: Ordered Aspirin 324 mg PO 1215: Ordered Nitroglycerin 0.4 mg SL 1320: I updated the patient at this time. She is doing okay. Her symptoms are almost gone. There is a faint amount of pressure left. 1315: Upon reevaluation, the patient is resting. I discussed my findings with the patient and she understands and agrees with the treatment plan. Based on the patients age, coexisting illnesses, exam and lab findings the decision to treat as an inpatient was made. The patient remained stable while under my care. The patient will be evaluated for further management. 1333: Ordered Sodium Chloride 500 ml @ 999 mls/hr IV Medical Decision Differential diagnoses includes but is not limited to acute coronary syndrome, myocardial infarction, pericarditis, pulmonary embolus, aortic dissection, pneumonia, pneumothorax, musculoskeletal, shingles, esophageal. Patient is a 77-year-old female who presents the ER for chest pain associated with shortness of breath. She notes this feels exactly like her previous MD which occurred 2 weeks ago. At that time she was admitted for an and STEMI and transferred to [facility] following having 2 stents placed in her LAD. She notes her pain was worse while making the bed today. CBC along with BMP and troponin was unremarkable. Chest pain resolved with nitroglycerin. Patient was given aspirin. EKG was improved from previous. Patient was admitted to internal medicine for further workup. She has not missed any doses of her Plavix. Medication Reconcilliation Current Medication List: was personally reviewed by me Blood Pressure Screening Patient's blood pressure: Elevated blood pressure Blood pressure disposition: Elevated BP felt to be situational Consults Time Called: 1310 Consulting Physician: Kathy Conklin PA-C - [facility] Hospitalist Returned Call: 1315 I reviewed the patient's case with her. She will evaluate the patient for further management. Impression Primary Impression: Precordial chest pain Scribe Attestation The scribe's documentation has been prepared under my direction and personally reviewed by me in its entirety. I confirm that the note above accurately reflects all work, treatment, procedures, and medical decision making performed by me. Departure Information Dispostion Being Evaluated By Hospitalist Prescriptions Atorvastatin (Atorvastatin Calcium) 40 Mg Tab 80 MG PO QPM for 30 Days, TAB Prov: Vanessa Lynn PA-C 03/19/17 Referrals Liana NEVILLE M.D. (PCP) Patient Instructions [facility]
--- NOTE | 2017-03-19 19:46 | History and Physical ---
History & Physical Date & Time of Service: Mar 19, 2017 at 13:58 Chief Complaint: Sob, Chest Heaviness, Lightheaded, Acid Reflux Primary Care Physician: Liana STOVER M.D. History of Present Illness This is a 77 y/o female with PMH of CAD s/p 2 RICHARD to LAD on 02/28/17 at [facility], dyslipidemia, GERD, and other problems listed below who presents to the ED with chest pain. On February 26 2017 patient was hospitalized at [facility] for NSTEMI, was seen seen by Dr. Sheridan, cardiac cath showed 90% LAD lesion, and patient was transferred to [facility] for intervention. At [facility] 2 RICHARD were placed in LAD on . After discharge she was functioning well, climbing stairs and doing household activities but no heavy lifting. Then overnight she did not sleep well , felt possible reflux/ indigestion, increased salivation. Did not feel SOB, but propped herself up with 2 pillows to help with salivation. [place] acid taste in her mouth when she awoke. Then bender she got out of bed this morning, she developed substernal chest tightness, non-radiating. [place] warm and mild nausea. Took a nitro which helped minimally. She then showered/ got dressed then climbed up the stairs, started making a bed and became and became SOB and lightheaded. Sat down in chair, felt heart pounding. drove her to ER. She was given nitro x 2 here. No longer having chest pain but doesn't feel right. Patient states her symptoms are similar to her prior NSTEMI in February.Denies syncope, dysphagia, odynophagia, abdominal pain, vomiting, bowel or bladder changes, calf pain, LE edema, weight gain. Past Medical/Surgical History Medical Problems: (1) Anxiety Status: Chronic (2) Arthritis Status: Chronic (3) CAD (coronary artery disease) Status: Chronic (4) HLD (hyperlipidemia) Status: Chronic Surgical Problems: (1) H/O oophorectomy Status: Chronic (2) H/O thumb surgery Status: Chronic (3) History of arthroscopy of right shoulder Status: Chronic (4) History of cataract surgery Status: Chronic (5) S/P coronary artery stent placement Permanent Comment: RICHARD x 2 to LAD 02/28/17; [facility] Status: Chronic Family History FH: heart disease FATHER ( from [place] at age 49) MOTHER ( from [place] at age 92) AUNT ( from [place] at age 80) Social History Smoking Status: Former Smoker (quit decades ago) Alcohol Use: none Drug Use: none Marital Status: Housing status: lives with family Occupational Status: retired Allergies Coded Allergies: No Known Allergies (Unverified , 02/26/17) Home Medications Scheduled Aspirin (Aspirin EC Low Dose), 81 MG PO QAM Atorvastatin (Atorvastatin Calcium), 80 MG PO QPM Calcium/Vitamin D (Os-Edi 500 Plus D), 1 TAB PO DAILY Citalopram Hydrobromide (Celexa), 20 MG PO HS Clopidogrel (Plavix), 1 TAB PO DAILY Fish Oil ([place]-3), 1 CAP PO DAILY Fluticasone Propionate (Nasal) (Flonase Allergy Relief), 1 [place] BID Glucosamine Sulfate (Glucosamine), 500 MG PO DAILY Lutein (Lutein), 10 MG PO DAILY Metoprolol Tartrate (Lopressor) (Lopressor), 12.5 MG PO Q12 Multivitamin (Multivitamin), 1 TAB PO DAILY Saline (Saline Nasal [place]), 1 [place] UD Scheduled PRN Alprazolam (Xanax), 0.25 MG PO BID PRN for Anxiety Artificial Tear Solution (Artificial Tears), 1 DROPS OP TID PRN for DRYNESS Calcium Carbonate (Tums), 2 TABS PO HS PRN for acid reflux Nitroglycerin (Nitrostat), 0.4 MG SL Q5M PRN for Chest Pain Olopatadine Hcl (Patanol 0.1% Oph), 1 DROP OP BID PRN for UD Omeprazole (Prilosec), 10 MG PO DAILY PRN for acid reflux Valacyclovir Hcl (Valtrex), 1,000 MG PO BID PRN for cold sore Review of Systems Ten systems reviewed and negative except as noted in HPI. Physical Exam Vital Signs Date Time Temp Pulse Resp B/P (MAP) Pulse Ox O2 Delivery O2 Flow Rate FiO2 03/19/17 13:23 62 14 93/59 93 Room Air 03/19/17 13:10 62 18 100/59 97 Room Air 03/19/17 12:48 58 20 105/67 97 Room Air 03/19/17 11:58 75 03/19/17 11:50 98 Room Air 03/19/17 11:50 77 22 126/67 100 Room Air 03/19/17 11:27 36.7 84 20 103/68 98 Room Air General Appearance: WD/WN, no apparent distress Head: normocephalic, atraumatic Eyes: normal inspection, PERRL, EOMI ENT: normal ENT inspection, pharynx normal Neck: supple, trachea midline Respiratory/Chest: lungs clear, normal breath sounds, no respiratory distress, no accessory muscle use Cardiovascular: regular rate, rhythm, no murmur, normal peripheral pulses Abdomen/GI: normal bowel sounds, non tender, soft Extremities/Musculoskelatal: no calf tenderness, no pedal edema Neurologic/Psych: alert, normal mood/affect, oriented x 3 Skin: normal color, warm/dry Diagnostics Laboratory Results Results Past 24 Hours Test 03/19/17 11:50 Range/Units White Blood Count 5.17 4.8-10.8 K/uL Red Blood Count 4.69 4.2-5.4 M/uL Hemoglobin 14.1 12.0-16.0 g/dL Hematocrit 42.5 37-47 % Mean Corpuscular Volume 90.6 80-100 fL Mean Corpuscular Hemoglobin 30.1 25-34 pg Mean Corpuscular Hemoglobin Concent 33.2 32-36 g/dl Platelet Count 231 130-400 K/uL Mean Platelet Volume 11.1 7.4-10.4 fL Neutrophils (%) (Auto) 66.6 % Lymphocytes (%) (Auto) 19.7 % Monocytes (%) (Auto) 10.8 % Eosinophils (%) (Auto) 2.1 % Basophils (%) (Auto) 0.8 % Neutrophils # (Auto) 3.44 1.4-6.5 K/uL Lymphocytes # (Auto) 1.02 1.2-3.4 K/uL Monocytes # (Auto) 0.56 0.11-0.59 K/uL Eosinophils # (Auto) 0.11 0-0.5 K/uL Basophils # (Auto) 0.04 0-0.2 K/uL RDW Standard Deviation 47.0 36.4-46.3 fL RDW Coefficient of Variation 14.3 11.5-14.5 % Immature Granulocyte % (Auto) 0.0 % Immature Granulocyte # (Auto) 0.00 0.00-0.02 K/uL Sodium Level 142 136-145 mmol/L Potassium Level 4.2 3.5-5.1 mmol/L Chloride Level 108 98-107 mmol/L Carbon Dioxide Level 27 21-32 mmol/L Anion Gap 7.0 3-11 mmol/L Blood Urea Nitrogen 24 7-18 mg/dl Creatinine 0.97 0.60-1.20 mg/dl Est Creatinine Clear Calc Drug Dose 38.4 ml/min Estimated GFR () 65.3 Estimated GFR (Non- 56.3 BUN/Creatinine Ratio 24.8 10-20 Random Glucose 94 70-99 mg/dl Calcium Level 9.6 8.5-10.1 mg/dl Total Creatine Kinase 43 26-192 U/L Creatine Kinase MB < 0.5 0.5-3.6 ng/ml Creatine Kinase MB Ratio 0-3.0 Troponin I < 0.015 0-0.045 ng/ml Diagnostic Radiology CHEST ONE VIEW PORTABLE CLINICAL HISTORY: Chest Pain dyspnea COMPARISON STUDY: 02/26/2017 FINDINGS: The bones soft tissues and hemidiaphragms are normal. The cardiomediastinal silhouette is normal. The lungs are clear. The pulmonary vasculature is normal. IMPRESSION: Negative chest. EKG NSR, possible left atrial enlargement, incomplete RBBB, LAFB, poor R wave progression- anterior CT vs. lead placement vs. LVH, when compared to prior EKG T wave inversion no longer evident in inferior leads or anterior leads, R wave in V3 has decreased, as confirmed by cardiology read Impression Assessment and Plan CHEST PAIN Rule out ACS; patient with known CAD s/p 2 RICHARD to LAD 02/28/17 at [facility]; pain similar to prior NSTEMI; improved with nitro Initial troponin negative EKG- NSR, incomplete RBBB, T wave inversion in V2, appears improved from March 01 EKG in Epic Trend serial cardiac enzymes Received aspirin 324 mg in ER Continue aspirin, Plavix, beta angelic, statin Consult cardiology; Dr. Mabry aware; appreciate input Resting echo tomorrow AM NPO after midnight in case of stress echo ANXIETY Continue citalopram GERD Continue PPI FULL CODE DVT PROPHYLAXIS Heparin SQ DISPO Observation telemetry Follows with Dr. Stover for primary care Patient seen in collaboration with Dr. Dela Cruz. Please see her addendum. ATTENDING NOTE ; pt seen and examined, care co -ordinated with Vanessa Conklin PA-C 77 yo F recently admitted with NSTEMI , Cardiac cath revealed severe CAD , pt was transferred to [facility], Pam underwent successful PTCA presents to ED with complain of exertional chest pain /SOB EKG shows T wave inversion in lateral lead which was present in prior EKG post PTCA pt will be observed in Tele to R/o evidence of ACS P/E: GEN ; No sign of distress HEENT : NAD HT : regular S1/S2 LUNGS; CTA ABDOMEN : soft, non tender EXT : no lower ext edema NEURO: AAO x3, no focal deficit A/P: Chest pain in setting of underlying CAD : monitor in tele continued pt's cardiac meds of Aspirin , Plavix , statin had recent ECHO which showed normal EF with no wall motion abnormality appreciate input form cardiology Lexiscan cardiac stress test tomorrow if serial cardiac markers are negative FULL CODE please refer to Vanessa LEWIS documentation for discussion of other issues Eliza Dela Cruz MD Level of Care Telemetry Resuscitation Status FULL RESUSCITATION VTE Prophylaxis VTE Risk Assessment Done? Y/N: Yes Risk Level: Moderate Given or contraindicated: Unfractionated heparin SQ Additional Copies To Liana STOVER M.D. Henry, Sheldon D., M.D.
[2017-03-19 19:48] VITALS: BP 109/72; PULSE 67; TEMP 36.6; O2SAT 96
[2017-03-19 20:12] LABS: CKMB/CK RATIO 1.6 (0-3.0)
[2017-03-19] MEDS ORDERED: ATORVASTATIN 40 MG TAB PO SCH (21:00)
[2017-03-19] MEDS ORDERED: METOPROLOL TARTRATE 25 MG TAB PO SCH (21:00)
[2017-03-19] MEDS ORDERED: CITALOPRAM 20 MG TAB PO SCH (21:00)
[2017-03-19 21:36] VITALS: BP 110/71; PULSE 65
[2017-03-19] MEDS: FLUTICASONE PROPIONATE NA SPR 16 GM BTL NAE SCH (21:37)
[2017-03-19] MEDS: HEPARIN SOD 5000 UNIT/0.5 ML CARP SQ SCH (21:40)
[2017-03-20 00:17] VITALS: BP 103/61; PULSE 72; TEMP 36.5; O2SAT 97
[2017-03-20 04:00] VITALS: BP 104/67; PULSE 68; TEMP 36.5; O2SAT 95
[2017-03-20 04:12] LABS: BLOOD UREA NITROGEN 27 mg/dl (7-18); BUN/CREATININE RATIO 27.4 (10-20); CALCIUM 8.8 mg/dl (8.5-10.1); CARBON DIOXIDE 28 mmol/L (21-32); CHLORIDE 111 mmol/L (98-107); GLUCOSE 81 mg/dl (70-99); POTASSIUM 4.6 mmol/L (3.5-5.1); SODIUM 145 mmol/L (136-145)
[2017-03-20] MEDS: HEPARIN SOD 5000 UNIT/0.5 ML CARP SQ SCH ×2 (06:07→14:00)
[2017-03-20 07:37] VITALS: BP 117/74; PULSE 66; TEMP 36.7; O2SAT 95
[2017-03-20] MEDS ORDERED: REGADENOSON 0.4 MG/5 ML SYR ONE (07:42)
[2017-03-20] MEDS ORDERED: GLUCOSAMINE SULFATE 500 MG CAP PO SCH (09:00)
[2017-03-20] MEDS ORDERED: ASPIRIN 81 MG ECTAB PO SCH ×2 (09:00)
[2017-03-20] MEDS ORDERED: CLOPIDOGREL BISULFATE 75 MG TAB PO SCH (09:00)
[2017-03-20] MEDS ORDERED: NON-FORMULARY MEDICATION (Lutein 10 MG) PO SCH (09:00)
[2017-03-20] MEDS ORDERED: OMEGA-3 (PURIFIED FISH OIL) 1 GM CAP PO SCH (09:00)
[2017-03-20] MEDS ORDERED: MULTIVITAMIN TAB PO SCH (09:00)
[2017-03-20] MEDS ORDERED: ATORVASTATIN 40 MG TAB PO SCH (09:00)
[2017-03-20] MEDS ORDERED: CALCIUM 600MG + VIT D 400 IU TAB PO SCH (09:00)
[2017-03-20] MEDS ORDERED: PANTOprazole SOD 40 MG TAB PO SCH (09:00)
--- NOTE | 2017-03-20 10:07 | Progress Note ---
Medicine Progress Note Date & Time of Visit: Mar 20, 2017 at 10:01. Subjective Patient seen and examined today. Sitting up in bed, resting comfortably. Feeling well today. Denies lightheadedness, CP, SOB, nausea/vomiting, LE swelling. States that she is ready for her stress test today. Objective Last 8 Hrs Date Time Temp Pulse Resp B/P (MAP) Pulse Ox O2 Delivery O2 Flow Rate FiO2 03/20/17 07:46 Room Air 03/20/17 07:37 36.7 66 18 117/74 (88) 95 Room Air 03/20/17 04:00 Room Air 03/20/17 04:00 36.5 68 20 104/67 (79) 95 Room Air Physical Exam: General Appearance: WD/WN, no apparent distress Head: normocephalic, atraumatic Eyes: normal inspection, PERRL, EOMI ENT: hearing grossly normal, pharynx normal Neck: supple, no JVD, no adenopathy Respiratory/Chest: lungs clear to auscultation. No wheezes, rales or rhonci. No respiratory distress or accessory muscle use Cardiovascular: regular rate, rhythm, no murmur, normal peripheral pulses Abdomen/GI: normal bowel sounds, soft, non-tender to palpation Extremities/Musculoskelatal: normal inspection, no calf tenderness, normal capillary refill, no pedal edema Neurologic/Psych: alert, normal mood/affect, oriented x 3 Skin: normal color, warm/dry Laboratory Results: Last 24 Hours Test 03/19/17 11:50 03/19/17 19:22 03/20/17 03:36 White Blood Count 5.17 K/uL Red Blood Count 4.69 M/uL Hemoglobin 14.1 g/dL Hematocrit 42.5 % Mean Corpuscular Volume 90.6 fL Mean Corpuscular Hemoglobin 30.1 pg Mean Corpuscular Hemoglobin Concent 33.2 g/dl Platelet Count 231 K/uL Mean Platelet Volume 11.1 fL Neutrophils (%) (Auto) 66.6 % Lymphocytes (%) (Auto) 19.7 % Monocytes (%) (Auto) 10.8 % Eosinophils (%) (Auto) 2.1 % Basophils (%) (Auto) 0.8 % Neutrophils # (Auto) 3.44 K/uL Lymphocytes # (Auto) 1.02 K/uL Monocytes # (Auto) 0.56 K/uL Eosinophils # (Auto) 0.11 K/uL Basophils # (Auto) 0.04 K/uL RDW Standard Deviation 47.0 fL RDW Coefficient of Variation 14.3 % Immature Granulocyte % (Auto) 0.0 % Immature Granulocyte # (Auto) 0.00 K/uL Prothrombin Time 10.5 SECONDS Prothromb Time International Ratio 1.0 Sodium Level 142 mmol/L 145 mmol/L Potassium Level 4.2 mmol/L 4.6 mmol/L Chloride Level 108 mmol/L 111 mmol/L Carbon Dioxide Level 27 mmol/L 28 mmol/L Anion Gap 7.0 mmol/L 6.0 mmol/L Blood Urea Nitrogen 24 mg/dl 27 mg/dl Creatinine 0.97 mg/dl 1.00 mg/dl Est Creatinine Clear Calc Drug Dose 38.4 ml/min 37.3 ml/min Estimated GFR () 65.3 62.9 Estimated GFR (Non- 56.3 54.3 BUN/Creatinine Ratio 24.8 27.4 Random Glucose 94 mg/dl 81 mg/dl Calcium Level 9.6 mg/dl 8.8 mg/dl Total Creatine Kinase 43 U/L 37 U/L 36 U/L Creatine Kinase MB < 0.5 ng/ml 0.6 ng/ml < 0.5 ng/ml Creatine Kinase MB Ratio 1.6 Troponin I < 0.015 ng/ml < 0.015 ng/ml < 0.015 ng/ml Assessment & Plan This is a 77 y/o female with PMH of CAD s/p 2 RICHARD to LAD on 02/28/17 at [facility] [place], dyslipidemia, GERD and anxiety who presented to the ED with chest pain. Chest pain: -Rule out ACS; patient with known CAD s/p 2 RICHARD to LAD 02/28/17 at [facility] [place] -Pain similar to prior NSTEMI; improved with nitro -Received aspirin 324 mg in ER -Troponin negative x 3 -EKG- Unchanged from yesterday's EKG: NSR, incomplete RBBB, T wave inversion in V2 -Appears improved from March 01 EKG in [facility] -Continue aspirin, Plavix, beta angelic, statin -Consulted cardiology: -Resting echo performed. Awaiting results. -Exercise vs. pharmacologic stress test today Anxiety: -Stable -Continue citalopram GERD: Continue PPI DVT Ppx: Heparin SQ Code status: FULL PCP: Dr. Stover Dispo: Plan to return home once medically stable Current Inpatient Medications: Current Inpatient Medications Medications (Trade) Dose Ordered Sig/Susanna Route Start Time Stop Time Status Last Admin Dose Admin Heparin Sodium (Porcine) (Heparin Sq 5000 Unit/0.5ml) 5,000 unit Q8 SQ 03/19/17 22:00 04/18/17 21:59 03/20/17 06:07 5,000 UNIT Acetaminophen (Tylenol Tab) 650 mg Q4H PRN PO 03/19/17 14:00 04/18/17 13:59 Al Hydrox/Mg Hydrox/Simethicone (Maalox Max Susp) 15 ml Q4H PRN PO 03/19/17 14:00 04/18/17 13:59 Magnesium Hydroxide (Milk Of Magnesia Susp) 30 ml Q12H PRN PO 03/19/17 14:00 04/18/17 13:59 Zolpidem Tartrate (Ambien Tab) 5 mg HSZ PRN PO 03/19/17 14:00 04/18/17 13:59 Ondansetron HCl (Zofran Inj) 4 mg Q6H PRN IV 03/19/17 14:00 04/18/17 13:59 Polyethylene (Miralax Powder Packet) 17 gm DAILY PRN PO 03/19/17 14:00 04/18/17 13:59 Aspirin (Ecotrin Tab) 81 mg QAM PO 03/20/17 09:00 04/19/17 08:59 Calcium/Vitamin D (Caltrate Plus Tab) 1 tab DAILY PO 03/20/17 09:00 04/19/17 08:59 Citalopram Hydrobromide (celeXA TAB) 20 mg HS PO 03/19/17 21:00 04/18/17 20:59 03/19/17 21:38 20 MG Fluticasone Propionate (Flonase Nasal [place]) 1 sprays BID DALE 03/19/17 21:00 04/18/17 20:59 03/19/17 21:37 1 SPRAYS Metoprolol Tartrate (Lopressor Tab) 12.5 mg Q12 PO 03/19/17 21:00 04/18/17 20:59 03/19/17 21:39 12.5 MG Multivitamins (Multivitamin Tab) 1 tab DAILY PO 03/20/17 09:00 04/19/17 08:59 Nitroglycerin (Nitrostat Tab) 0.4 mg Q5M PRN SL 03/19/17 14:00 04/18/17 13:59 Clopidogrel Bisulfate (plAVix TAB) 75 mg QAM PO 03/20/17 09:00 04/19/17 08:59 Atorvastatin Calcium (Lipitor Tab) 80 mg QPM PO 03/19/17 21:00 04/19/17 08:59 03/19/17 21:38 80 MG Miscellaneous (Iv Fluids Completed) 1 ea PRN PRN N/A 03/19/17 14:45 03/19/18 14:44 Alprazolam (Xanax Tab) 0.25 mg BID PRN PO 03/19/17 15:00 04/18/17 14:59 Calcium Carbonate (Tums Chew Tab) 1,000 mg HS PRN PO 03/19/17 15:00 04/18/17 14:59 Fish Oil ([place]-3 (Purified Fish Oil) Cap) 1 gm DAILY PO 03/20/17 09:00 04/19/17 08:59 Glucosamine Sulfate (Glucosamine Cap) 500 mg DAILY PO 03/20/17 09:00 04/19/17 08:59 Sodium Chloride ([place] Nasal [place]) 1 sprays UD DALE 03/19/17 15:00 04/18/17 14:59 Artificial Tears (Artificial Tears) 1 drops TID PRN OP 03/19/17 15:00 04/18/17 14:59 Miscellaneous Information (Order Awaiting Action) 1 ea QS N/A 03/19/17 16:00 04/18/17 15:59 Pantoprazole Sodium (Protonix Tab) 40 mg QAM PO 03/20/17 09:00 04/19/17 08:59
--- NOTE | 2017-03-20 11:46 | ECHOCARDIOGRAM REPORT ---
*NOTICE TO RECEIVING DEMOCRAT AGENCY This information is strictly Confidential and protected under [place] law. [place] law prohibits you from making any further disclosure of this information unless further disclosure is expressly permitted by the written consent of the person to whom it pertains or is authorized by law. A general authorization for the release of medical or other information is not sufficient for this purpose. Hospital accepts no responsibility if the information is made available to any other person, INCLUDING THE PATIENT. Interpretation Summary * Name: CATARINA LANG Study Date: 03/20/2017 08:14 AM * Patient Location: [facility]\S\N276\S\1 HR: 64 * : 1940 (M/d/yyyy) Gender: Female Height: 62 in * Age: 77 yrs Ethnicity: [place] Weight: 129 lb * Ordering Physician: Vincenzo Mabry * Referring Physician: Self, Referred * Performed By: Kimberlyn Valentin RCS * * Reason For Study: Chest pain * BSA: 1.6 m2 * The study was technically adequate. * -- Conclusions -- * There is mild concentric left ventricular hypertrophy. * No regional wall motion abnormalities noted. * Left ventricular systolic function is normal. * Ejection Fraction = 65-70%. * Aortic valve sclerosis mild, without significant aortic valvular stenosis. * Mild aortic regurgitation. Procedure Details * A complete two-dimensional transthoracic echocardiogram was performed (2D, M-mode, Doppler and color flow Doppler). Left Ventricle * The left ventricle is normal in size. * There is mild concentric left ventricular hypertrophy. * Left ventricular systolic function is normal. * Ejection Fraction = 65-70%. * The left ventricular wall motion is normal. * No regional wall motion abnormalities noted. Right Ventricle * The right ventricle is normal size. * The right ventricular systolic function is normal as assessed by tricuspid annular plane systolic excursion (TAPSE) (normal >1.5 cm). Atria * The left atrial size is normal. * Right atrial size is normal. * There is no evidence of atrial septal defect, but resolution does not allow assessment for a patent foramen ovale. Mitral Valve * There is mild calcification of the anterior mitral valve leaflet. * There is no mitral valve stenosis. * Significant mitral regurgitation is absent. Tricuspid Valve * The tricuspid valve is normal. * There is no tricuspid stenosis. * Significant tricuspid regurgitation is absent. Aortic Valve * The aortic valve is trileaflet. * Aortic valve sclerosis mild, without significant aortic valvular stenosis. * Aortic stenosis is absent. * Mild aortic regurgitation. Pulmonic Valve * The pulmonary valve is not well seen, but the Doppler examination is normal without significant regurgitation or stenosis. Great Vessels * The aortic root and proximal ascending aorta are normal sized. Pericardium/Pleural * There is no pericardial effusion. Great Vessels * Normal inferior vena cava diameter and respiratory variation suggests normal central venous pressure. Left Ventricular Diastolic Function * Grade I diastolic dysfunction, (abnormal relaxation pattern). MMode 2D Measurements and Calculations IVSd 0.76 cm LVIDd 3.8 cm LVIDs 2.2 cm LVPWd 0.87 cm IVS/LVPW 0.87 FS 41.9 % EDV(Teich) 60.8 ml ESV(Teich) 16.0 ml EF(Teich) 73.6 % EDV(cubed) 53.5 ml ESV(cubed) 10.5 ml EF(cubed) 80.3 % LV mass(C)d 87.2 grams LV mass(C)dI 55.0 grams/m\S\2 SV(Teich) 44.7 ml SI(Teich) 28.2 ml/m\S\2 SV(cubed) 43.0 ml SI(cubed) 27.1 ml/m\S\2 Ao root diam 2.5 cm Ao root area 5.0 cm\S\2 LVOT diam 1.9 cm LVOT area 2.8 cm\S\2 LVAd ap4 17.3 cm\S\2 LVLd ap4 6.6 cm EDV(MOD-sp4) 38.1 ml EDV(sp4-el) 38.1 ml LVAs ap4 9.3 cm\S\2 LVLs ap4 5.6 cm ESV(MOD-sp4) 13.5 ml ESV(sp4-el) 13.1 ml EF(MOD-sp4) 64.6 % EF(sp4-el) 65.7 % LVAd ap2 14.8 cm\S\2 LVLd ap2 6.7 cm EDV(MOD-sp2) 27.8 ml EDV(sp2-el) 27.9 ml LVAs ap2 8.0 cm\S\2 LVLs ap2 5.5 cm ESV(MOD-sp2) 10.0 ml ESV(sp2-el) 9.9 ml EF(MOD-sp2) 64.1 % EF(sp2-el) 64.5 % LVLd %diff 0.29 % EDV(MOD-bp) 32.9 ml LVLs %diff -3.19 % ESV(MOD-bp) 11.7 ml EF(MOD-bp) 64.5 % SV(MOD-sp4) 24.6 ml SI(MOD-sp4) 15.5 ml/m\S\2 SV(MOD-sp2) 17.8 ml SI(MOD-sp2) 11.2 ml/m\S\2 SV(MOD-bp) 21.2 ml SI(MOD-bp) 13.4 ml/m\S\2 SV(sp4-el) 25.1 ml SI(sp4-el) 15.8 ml/m\S\2 SV(sp2-el) 18.0 ml SI(sp2-el) 11.3 ml/m\S\2 Doppler Measurements and Calculations MV E max jenni 66.0 cm/sec MV A max jenni 59.2 cm/sec MV E/A 1.1 MV dec time 0.15 sec Ao V2 max 116.2 cm/sec Ao max PG 5.4 mmHg Ao max PG (full) 2.7 mmHg KOFI(V,A) 2.0 cm\S\2 KOFI(V,D) 2.0 cm\S\2 AI max jenni 425.3 cm/sec AI max PG 72.4 mmHg AI dec slope 180.4 cm/sec\S\2 AI P1/2t 690.7 msec LV V1 max PG 2.7 mmHg LV V1 max 82.5 cm/sec PI end-d jenni 104.5 cm/sec TR max jenni 205.1 cm/sec
[2017-03-20 13:09] VITALS: BP 113/74; PULSE 75; TEMP 36.6; O2SAT 98
--- NOTE | 2017-03-20 14:02 | Cardiology Follow-Up ---
Subjective General Date of Service: Mar 20, 2017. Chief Complaint: follow up chest pain Pt evaluation today including: conversation w/ patient, physical exam History of Present Illness The patient is a 77 year old female seen in follow up prior to stress, during stress, and post stress. I reassessed pt in her room after the stress test. No additional symptoms concerning for angina were reported overnight by patient. EKG negative this am. Trop negative x 3. Allergies Coded Allergies: No Known Allergies (Unverified , 02/26/17) Social History Smoking Status: Former Smoker (quit decades ago) Hx Tobacco Use In Past Year?: No Hx Alcohol Use - Type And Amou: Yes (1 glass wine/month ) Hx Substance Use - Type And Am: No Problem List Medical Problems: (1) Precordial chest pain Status: Acute (2) STEMI (ST elevation myocardial infarction) Status: Acute (3) Unstable angina Status: Acute Physical Exam Vital Signs Last Vital Signs Documentation Date Time Temp Pulse Resp B/P (MAP) Pulse Ox O2 Delivery O2 Flow Rate FiO2 03/20/17 13:09 36.6 75 18 113/74 (87) 98 Room Air Physical Exam Constitutional: Level of Distress: NAD Neck: supple Lungs: Auscultation: no wheezing, no rales/crackles, no rhonchi Cardiovascular: Heart Auscultation: RRR, no murmurs, no rubs Abdomen: Inspection & Palpation: soft, non-distended, no tenderness, guarding & rebound Extremities: no cyanosis, no edema Neurologic: Gait & Station: pertinent finding (no focal neuro deficits ) Assessment and Plan Assessment and Plan Impression: 77-year-old female 1. Exertional SOB. -Normal wall motion on resting echo. -Normal nuclear stress -accelerated HR response to exercise. 2. Dyslipidemia 3. History of anxiety 4. History of gastroesophageal reflux disease Discussion/recommendations: OK to DC from my standpoint. Increase metoprolol tartrate from 12.5 mg bid to 25 mg bid. Keep follow up visit with Dr Sheridan as planned for next week. Cardiac rehab. Carlos Mabry DO Laboratory Results Last 24 Hours Test 03/19/17 19:22 03/20/17 03:36 Total Creatine Kinase 37 U/L 36 U/L Creatine Kinase MB 0.6 ng/ml < 0.5 ng/ml Creatine Kinase MB Ratio 1.6 Troponin I < 0.015 ng/ml < 0.015 ng/ml Sodium Level 145 mmol/L Potassium Level 4.6 mmol/L Chloride Level 111 mmol/L Carbon Dioxide Level 28 mmol/L Anion Gap 6.0 mmol/L Blood Urea Nitrogen 27 mg/dl Creatinine 1.00 mg/dl Est Creatinine Clear Calc Drug Dose 37.3 ml/min Estimated GFR () 62.9 Estimated GFR (Non- 54.3 BUN/Creatinine Ratio 27.4 Random Glucose 81 mg/dl Calcium Level 8.8 mg/dl
[2017-03-20] MEDS: FLUTICASONE PROPIONATE NA SPR 16 GM BTL NAE SCH (14:05)
--- NOTE | 2017-03-20 14:06 | MYOCARDIAL PERFUSION SCAN ---
EXERCISE CARDIOLITE STRESS TEST ORDERING PROVIDER: Vincenzo Mabry DO INTERPRETING PROVIDER: Vincenzo Mabry DO INDICATION: Exertional chest discomfort, recent anterior non-ST segment elevation myocardial infarction and stenting of the proximal left anterior descending coronary artery. INJECTION INFORMATION: For the stress portion of the study, 32.1 mCi of Technetium 99 m Cardiolite IV was injected at 11:50 am on 03/19/2017. Fifteen minutes following the injection, imaging of the heart was performed in multiple projection. For the rest portion of the study, 10.4 mCi of Technetium 99 m Cardiolite was injected IV at 09:50 am. One hour following the injection, imaging of the heart was performed in the same projections. EXERCISE DATA: The patient exercised according to the standard Douglas protocol for 3 minutes and 42 seconds, achieving a peak work level of 4.6 mets. The resting heart rate of 86 beats per minute roseline to a maximum heart rate of 153 beats per minute. This value represents 106% of the maximal age predicted heart rate. The resting blood pressure of 110/60 mmHg roseline to a maximum blood pressure of 130/80 mmHg. The exercise stress test was terminated due to fatigue. A technical note that the standard Douglas protocol was initial protocol, after injection of the Cardiolite, the incline of the stress test was altered from 10% down to 0.8%, due to the patient's complaints of fatigue and shortness of breath to allow her to complete the exercise test. Baseline EKG revealed sinus rhythm with incomplete right bundle branch block and no significant ST changes. The stress EKG response was negative for ischemia. No significant arrhythmias were noted. An accelerated heart rate response to exercise was noted. The blood pressure response to exercise was appropriate. RAW IMAGES: The study was of good technical quality. Review of the raw data in rotational cine format reveals no significant abnormalities. STRESS IMAGES: Stress and rest SPECT perfusion images revealed homogenous tracer distribution throughout the myocardium. LEFT VENTRICLE: Gated SPECT images revealed normal myocardial thickening and wall motion. Transient ischemic dilatation was absent. The left ventricular ejection fraction was normal and was greater than 70% by qualitative visual inspection. CONCLUSION: Exercise nuclear stress study was negative for inducible ischemia. The exercise test was terminated due to fatigue and shortness of breath that was appropriate for the patient's level of exertion. The symptoms were not suggestive of angina with presenting symptoms not reproduced, and normal EKG response. Her accelerated heart rate response appears to be in part due to deconditioning. RECOMMENDATIONS: Continue medication therapy. MTDD
[2017-03-20] MEDS ORDERED: LPR25 PO (15:11)
[2017-03-20] MEDS ORDERED: PLV75 PO (15:11)
[2017-03-20 15:31] VITALS: BP 113/74; PULSE 75; TEMP 36.6; O2SAT 98
--- NOTE | 2017-03-20 18:25 | Progress Note ---
Subjective Date of Service: Mar 20, 2017. Subjective Pt evaluation today including: conversation w/ patient, physical exam, lab review, review of studies, review of inpatient medication list Saw/examined the patient in room 276 Doing well; no chest pain/SOB Stress testing done this morning - negative No other issues to note Problem List Medical Problems: (1) Precordial chest pain Status: Acute (2) STEMI (ST elevation myocardial infarction) Status: Acute (3) Unstable angina Status: Acute Review of Systems Constitutional: No fever, No chills Respiratory: No cough, No sputum, No wheezing, No shortness of breath, No dyspnea on exertion, No dyspnea at rest Cardiac: No chest pain, No edema, No palpitations Abdomen: No pain, No nausea, No vomiting, No diarrhea Medications Current Inpatient Medications Medications (Trade) Dose Ordered Sig/Susanna Route Start Time Stop Time Status Last Admin Dose Admin Heparin Sodium (Porcine) (Heparin Sq 5000 Unit/0.5ml) 5,000 unit Q8 SQ 03/19/17 22:00 04/18/17 21:59 03/20/17 06:07 5,000 UNIT Acetaminophen (Tylenol Tab) 650 mg Q4H PRN PO 03/19/17 14:00 04/18/17 13:59 Al Hydrox/Mg Hydrox/Simethicone (Maalox Max Susp) 15 ml Q4H PRN PO 03/19/17 14:00 04/18/17 13:59 Magnesium Hydroxide (Milk Of Magnesia Susp) 30 ml Q12H PRN PO 03/19/17 14:00 04/18/17 13:59 Zolpidem Tartrate (Ambien Tab) 5 mg HSZ PRN PO 03/19/17 14:00 04/18/17 13:59 Ondansetron HCl (Zofran Inj) 4 mg Q6H PRN IV 03/19/17 14:00 04/18/17 13:59 Polyethylene (Miralax Powder Packet) 17 gm DAILY PRN PO 03/19/17 14:00 04/18/17 13:59 Aspirin (Ecotrin Tab) 81 mg QAM PO 03/20/17 09:00 04/19/17 08:59 03/20/17 14:04 81 MG Calcium/Vitamin D (Caltrate Plus Tab) 1 tab DAILY PO 03/20/17 09:00 04/19/17 08:59 8/15/17 14:05 1 TAB Citalopram Hydrobromide (celeXA TAB) 20 mg HS PO 03/19/17 21:00 04/18/17 20:59 03/19/17 21:38 20 MG Fluticasone Propionate (Flonase Nasal [place]) 1 sprays BID DALE 03/19/17 21:00 04/18/17 20:59 03/19/17 21:37 1 SPRAYS Multivitamins (Multivitamin Tab) 1 tab DAILY PO 03/20/17 09:00 04/19/17 08:59 03/20/17 14:04 1 TAB Nitroglycerin (Nitrostat Tab) 0.4 mg Q5M PRN SL 03/19/17 14:00 04/18/17 13:59 Clopidogrel Bisulfate (plAVix TAB) 75 mg QAM PO 03/20/17 09:00 04/19/17 08:59 03/20/17 14:04 75 MG Atorvastatin Calcium (Lipitor Tab) 80 mg QPM PO 03/19/17 21:00 04/19/17 08:59 03/19/17 21:38 80 MG Miscellaneous (Iv Fluids Completed) 1 ea PRN PRN N/A 03/19/17 14:45 03/19/18 14:44 Alprazolam (Xanax Tab) 0.25 mg BID PRN PO 03/19/17 15:00 04/18/17 14:59 Calcium Carbonate (Tums Chew Tab) 1,000 mg HS PRN PO 03/19/17 15:00 04/18/17 14:59 Fish Oil ([place]-3 (Purified Fish Oil) Cap) 1 gm DAILY PO 03/20/17 09:00 04/19/17 08:59 03/20/17 14:05 1 GM Glucosamine Sulfate (Glucosamine Cap) 500 mg DAILY PO 03/20/17 09:00 04/19/17 08:59 03/20/17 14:04 500 MG Sodium Chloride ([place] Nasal [place]) 1 sprays UD DALE 03/19/17 15:00 04/18/17 14:59 Artificial Tears (Artificial Tears) 1 drops TID PRN OP 03/19/17 15:00 04/18/17 14:59 Miscellaneous Information (Order Awaiting Action) 1 ea QS N/A 03/19/17 16:00 04/18/17 15:59 Pantoprazole Sodium (Protonix Tab) 40 mg QAM PO 03/20/17 09:00 04/19/17 08:59 03/20/17 14:04 40 MG Metoprolol Tartrate (Lopressor Tab) 25 mg BID PO 03/20/17 21:00 04/19/17 20:59 03/20/17 14:05 25 MG Objective Vital Signs Date Time Temp Pulse Resp B/P (MAP) Pulse Ox O2 Delivery O2 Flow Rate FiO2 03/20/17 13:09 36.6 75 18 113/74 (87) 98 Room Air 03/20/17 12:50 Room Air 03/20/17 07:46 Room Air 03/20/17 07:37 36.7 66 18 117/74 (88) 95 Room Air 03/20/17 04:00 Room Air 03/20/17 04:00 36.5 68 20 104/67 (79) 95 Room Air 03/20/17 00:17 36.5 72 20 103/61 (75) 97 Room Air 03/20/17 00:01 Room Air 03/19/17 21:36 65 110/71 (84) 03/19/17 20:00 Room Air 03/19/17 19:48 36.6 67 18 109/72 (84) 96 Room Air 03/19/17 16:02 Room Air Physical Exam General Appearance: no apparent distress Respiratory/Chest: chest non-tender, lungs clear, normal breath sounds, no respiratory distress, no accessory muscle use Cardiovascular: regular rate, rhythm, no edema, no murmur Abdomen: normal bowel sounds, non tender, soft Extremities: normal inspection, no pedal edema Neurologic/Psychiatric: no motor/sensory deficits, alert, normal mood/affect Laboratory Results Last 24 Hours Test 03/19/17 19:22 03/20/17 03:36 Total Creatine Kinase 37 U/L 36 U/L Creatine Kinase MB 0.6 ng/ml < 0.5 ng/ml Creatine Kinase MB Ratio 1.6 Troponin I < 0.015 ng/ml < 0.015 ng/ml Sodium Level 145 mmol/L Potassium Level 4.6 mmol/L Chloride Level 111 mmol/L Carbon Dioxide Level 28 mmol/L Anion Gap 6.0 mmol/L Blood Urea Nitrogen 27 mg/dl Creatinine 1.00 mg/dl Est Creatinine Clear Calc Drug Dose 37.3 ml/min Estimated GFR () 62.9 Estimated GFR (Non- 54.3 BUN/Creatinine Ratio 27.4 Random Glucose 81 mg/dl Calcium Level 8.8 mg/dl Assessment and Plan This is a 77 year old female with a PMH of CAD and recent RICHARD x2 on February 28, 2017, depression/anxiety, GERD presents secondary to chest pain Chest Pain in the setting of CAD, recent PCI x2 cardiac enzymes negative x3 patient had a lexiscan nuclear stress - which was negative no chest pain, no other symptoms currently Metoprolol is increased to 25mg BID otherwise, continue aspirin, Plavix, statin Depression/Anxiety continue home medications GERD controlled, continue home medications DVT ppx subq heparin FULL CODE
--- NOTE | 2017-03-20 18:26 | Discharge Instructions ---
Discharge Instructions Date of Service Mar 20, 2017. Admission Reason for Admission: Chest Pain Discharge Discharge Diagnosis / Problem: CAD; anginal symptoms Discharge Goals Goal(s): Decrease discomfort, Improve function, Diagnostic testing, Therapeutic intervention Activity Recommendations Activity Limitations: resume your previous activity . Instructions / Follow-Up Instructions / Follow-Up Please follow-up with Dr. Jose (covering for Dr. Stover) on March 26 at 10:45AM * Your dose of metoprolol is increased to 25mg twice daily * Continue aspirin, Plavix, and Lipitor * Follow-up with Dr. Sheridan next week as scheduled * Begin cardiac rehab Current Hospital Diet Patient's current hospital diet: AHA Diet (Heart Healthy) Discharge Diet Recommended Diet: AHA Diet (Heart Healthy) Pending Studies Studies pending at discharge: no Laboratory Results Lipid Panel Test 02/27/17 05:11 Range/Units Triglycerides Level 46 0-150 mg/dl Cholesterol Level 186 0-200 mg/dl HDL Cholesterol 70 mg/dl Cholesterol/HDL Ratio 2.7 LDL Cholesterol, Calculated 107 mg/dl Medical Emergencies . Who to Call and When: Medical Emergencies: If at any time you feel your situation is an emergency, please call 911 immediately. . Non-Emergent Contact Non-Emergency issues call your: Primary Care Provider . . "Provider Documentation" section prepared by Semaj Thompson. . VTE Core Measure Inpt VTE Proph given/why not?: Unfractionated heparin SQ
--- NOTE | 2017-03-20 18:26 | Discharge Summary ---
Discharge Summary Date of Service Mar 20, 2017. Discharge Summary Admission Date: Mar 19, 2017 at 13:47 Discharge Date: Mar 20, 2017 Discharge Disposition: Home Principal Diagnosis: CAD Medication Reconciliation New Medications: Clopidogrel Bisulfate (Clopidogrel) 75 Mg Tab 75 MG PO QAM for 30 Days, #30 TAB Metoprolol Tartrate (Lopressor) 25 Mg Tab 25 MG PO BID for 30 Days, #60 TAB Continued Medications: Alprazolam (Xanax) 0.25 Mg Tab 0.25 MG PO BID PRN for Anxiety, TAB Artificial Tear Solution (Artificial Tears) 1 Thu Thu 1 DROPS OP TID PRN for DRYNESS, #15 ML 5 Refills Aspirin (Aspirin EC Low Dose) 81 Mg Ectab 81 MG PO QAM for 30 Days Atorvastatin (Atorvastatin Calcium) 40 Mg Tab 80 MG PO QPM for 30 Days, TAB Calcium Carbonate (Tums) 500 Mg Chew 2 TABS PO HS PRN for acid reflux Calcium/Vitamin D (Os-Edi 500 Plus D) Tab 1 TAB PO DAILY, TAB Citalopram Hydrobromide (Celexa) 20 Mg Tab 20 MG PO HS, TAB Fish Oil ([place]-3) 1 Ea Cap 1 CAP PO DAILY, CAP Fluticasone Propionate (Nasal) (Flonase Allergy Relief) 50 Mcg/Act Spr 1 SPRAY DALE BID Glucosamine Sulfate (Glucosamine) 500 Mg Cap 500 MG PO DAILY Lutein (Lutein) 10 Mg Tab 10 MG PO DAILY Multivitamin (Multivitamin) Tab 1 TAB PO DAILY, TAB Nitroglycerin (Nitrostat) 0.4 Mg/1 Tab Subl 0.4 MG SL Q5M PRN for Chest Pain, #30 Olopatadine Hcl (Patanol 0.1% Oph) 0.1 % Thu 1 DROP OP BID PRN for UD, BTL Omeprazole (Prilosec) 10 Mg Pack 10 MG PO DAILY PRN for acid reflux Saline (Saline Nasal [place]) 0.65 % Spr 1 SPRAY DALE UD Flush each nostril morning and night and every 2-4 hours as needed for nasal dryness or congestion. Valacyclovir Hcl (Valtrex) 1 Gm Tab 1000 MG PO BID PRN for cold sore, #21 TAB Discontinued Medications: Clopidogrel (Plavix) Unknown Strength Tab 1 TAB PO DAILY Metoprolol Tartrate (Lopressor) (Lopressor) 25 Mg Tab 12.5 MG PO Q12 Admission Information HPI (per Admitting provider): This is a 77 y/o female with PMH of CAD s/p 2 RICHARD to LAD on 02/28/17 at [facility] [place] [place], dyslipidemia, GERD, and other problems listed below who presents to the ED with chest pain. On February 26 2017 patient was hospitalized at [facility] for NSTEMI, was seen seen by Dr. Sheridan, cardiac cath showed 90% LAD lesion, and patient was transferred to [facility] [place] [place] for intervention. At [facility] [place] [place] 2 RICHARD were placed in LAD on . After discharge she was functioning well, climbing stairs and doing household activities but no heavy lifting. Then overnight she did not sleep well , felt possible reflux/ indigestion, increased salivation. Did not feel SOB, but propped herself up with 2 pillows to help with salivation. [place] acid taste in her mouth when she awoke. Then bender she got out of bed this morning, she developed substernal chest tightness, non-radiating. [place] warm and mild nausea. Took a nitro which helped minimally. She then showered/ got dressed then climbed up the stairs, started making a bed and became and became SOB and lightheaded. Sat down in chair, felt heart pounding. drove her to ER. She was given nitro x 2 here. No longer having chest pain but doesn't feel right. Patient states her symptoms are similar to her prior NSTEMI in February.Denies syncope, dysphagia, odynophagia, abdominal pain, vomiting, bowel or bladder changes, calf pain, LE edema, weight gain. Physical Exam (per Admitting): General Appearance: WD/WN, no apparent distress Head: normocephalic, atraumatic Eyes: normal inspection, PERRL, EOMI ENT: normal ENT inspection, pharynx normal Neck: supple, trachea midline Respiratory/Chest: lungs clear, normal breath sounds, no respiratory distress, no accessory muscle use Cardiovascular: regular rate, rhythm, no murmur, normal peripheral pulses Abdomen/GI: normal bowel sounds, non tender, soft Extremities/Musculoskelatal: no calf tenderness, no pedal edema Neurologic/Psych: alert, normal mood/affect, oriented x 3 Skin: normal color, warm/dry Hospital Course This is a 77 year old female with a PMH of CAD and recent RICHARD x2 on February 28, 2017, depression/anxiety, GERD presents secondary to chest pain Chest Pain in the setting of CAD, recent PCI x2 cardiac enzymes negative x3 patient had a lexiscan nuclear stress - which was negative no chest pain, no other symptoms currently Metoprolol is increased to 25mg BID otherwise, continue aspirin, Plavix, statin Depression/Anxiety continue home medications GERD controlled, continue home medications DVT ppx subq heparin FULL CODE Total time spent on discharge = 20 minutes This includes examination of the patient, discharge planning, medication reconciliation, and communication with other providers. Discharge Instructions Please follow-up with Dr. Jose (covering for Dr. Stover) on March 26 at 10:45AM * Your dose of metoprolol is increased to 25mg twice daily * Continue aspirin, Plavix, and Lipitor * Follow-up with Dr. Sheridan next week as scheduled * Begin cardiac rehab
[2017-03-20] MEDS ORDERED: METOPROLOL TARTRATE 25 MG TAB PO SCH (21:00)
== END 2017-03-20 15:45 | disposition home or self-care (01) ==
LOC: C.EDB 11:25 → C.MED 13:47 → ENRESERV 14:09
PROVIDERS: ADMIT Hospitalist; ATTEND Family Medicine
DX: I25.10 Atherosclerotic heart disease of native coronary artery without angina pectoris (principal); I25.2 Old myocardial infarction; E78.5 Hyperlipidemia, unspecified; K21.9 Gastro-esophageal reflux disease without esophagitis; F41.9 Anxiety disorder, unspecified; M19.90 Unspecified osteoarthritis, unspecified site; Z95.5 Presence of coronary angioplasty implant and graft; Z79.82 Long term (current) use of aspirin; Z79.899 Other long term (current) drug therapy

== ENCOUNTER 2022-03-13 05:20 | Observation (INO) ==
--- NOTE | 2022-02-10 15:20 | PAT Medication Instructions ---
Medication Instructions Date of Service February 10, 2022 Home Medications aspirin 81 mg tablet,delayed release (Adult Low Dose Aspirin) 81 mg PO Q2D atorvastatin 80 mg tablet 80 mg PO HS 01/05 calcium carbonate 600 mg-vitamin D3 12.5 mcg (500 unit) capsule (Calcium 600 with Vitamin D3) 1 cap PO QAM citalopram 20 mg tablet 20 mg PO QAM clopidogrel 75 mg tablet 75 mg PO QAM dronedarone 400 mg tablet (Multaq) 400 mg PO BID fluticasone propionate 50 mcg/actuation nasal spray,suspension (Allergy Relief (fluticasone)) 1 spray INTRANASAL DAILY lutein 20 mg capsule 20 mg PO QAM metoprolol succinate 25 mg tablet,extended release 24 hr 25 mg PO BID multivitamin (Daily Multi-Vitamin) 1 tab PO QAM nitroglycerin 0.4 mg sublingual tablet 0.4 mg SUBLINGUAL Q5M PRN olopatadine 0.1 % eye drops 1 drp OPHTHALMIC (EYE) BID pantoprazole 40 mg tablet,delayed release (Protonix) 40 mg PO DAILY valacyclovir 500 mg tablet 1,000 mg PO QAM PRN venlafaxine 37.5 mg capsule,extended release 24 hr 37.5 mg PO DAILY omega-3 fatty acids 1,250 mg PO QAM pantoprazole 20 mg tablet,delayed release (Protonix) 20 mg PO QAM white petrolatum-mineral oil 83 %-15 % eye ointment (Artificial Eye Lubricant) 1 applic OPHTHALMIC (EYE) BID PRN Continue as directed fluticasone propionate 50 mcg/actuation nasal spray,suspension (Allergy Relief (fluticasone)) 1 spray INTRANASAL DAILY nitroglycerin 0.4 mg sublingual tablet 0.4 mg SUBLINGUAL Q5M PRN (if needed) pantoprazole 40 mg tablet,delayed release (Protonix) 40 mg PO DAILY venlafaxine 37.5 mg capsule,extended release 24 hr 37.5 mg PO DAILY ASK your surgeon for instructions clopidogrel 75 mg tablet 75 mg PO QAM (will need to hold Plavix/clopidogrel for at least 7 days prior to surgery in order to get spinal anesthesia) STOP taking 2 weeks before surgery lutein 20 mg capsule 20 mg PO QAM omega-3 fatty acids 1,250 mg PO QAM DO NOT take the morning of surgery calcium carbonate 600 mg-vitamin D3 12.5 mcg (500 unit) capsule (Calcium 600 with Vitamin D3) 1 cap PO QAM multivitamin (Daily Multi-Vitamin) 1 tab PO QAM Take morning of surgery With a small sip of water, OTHERWISE NOTHING TO EAT OR DRINK AFTER MIDNIGHT: aspirin 81 mg tablet,delayed release (Adult Low Dose Aspirin) 81 mg PO Q2D (unless surgeon directed otherwise) citalopram 20 mg tablet 20 mg PO QAM dronedarone 400 mg tablet (Multaq) 400 mg PO BID metoprolol succinate 25 mg tablet,extended release 24 hr 25 mg PO BID olopatadine 0.1 % eye drops 1 drp OPHTHALMIC (EYE) BID valacyclovir 500 mg tablet 1,000 mg PO QAM PRN (if needed) pantoprazole 20 mg tablet,delayed release (Protonix) 20 mg PO QAM white petrolatum-mineral oil 83 %-15 % eye ointment (Artificial Eye Lubricant) 1 applic OPHTHALMIC (EYE) BID PRN (if needed) Take evening before surgery atorvastatin 80 mg tablet 80 mg PO HS dronedarone 400 mg tablet (Multaq) 400 mg PO BID metoprolol succinate 25 mg tablet,extended release 24 hr 25 mg PO BID olopatadine 0.1 % eye drops 1 drp OPHTHALMIC (EYE) BID white petrolatum-mineral oil 83 %-15 % eye ointment (Artificial Eye Lubricant) 1 applic OPHTHALMIC (EYE) BID PRN (if needed) Other Notes If you have any questions please call us at [phone] or [phone] or [phone] or [phone]
--- NOTE | 2022-02-17 14:10 | Anesthesiology Consultation ---
Date of Service February 17, 2022 Assessment & Plan (1) Encounter for pre-operative examination: - COVID screening: Per assessment on 02/17: No known COVID-19 positive contacts or current COVID-19 related symptoms. Travel screen negative. Patient vaccinated. Surgeon arranging preop COVID testing. Awaiting results. - Cardiology office visit (12/23/21): "Notes episodic elevation in heart rate on Fitbit wrist monitor. Episodes usually occurring at rest. And associated with significant diaphoresis and sweating. Notes no or exercise or activity induced complaints . Performed and instructed water aerobics while there. No chest pains or discomfort with exertion.. stress test echo and Holter monitor unrevealing. Patient was empirically begun on Multaq approximately 3 weeks ago. Patient does feel somewhat better since beginning this medication. Notes no sustained tachyarrhythmias and heart rates have come under better control on Fitbit monitor.. Continue all current therapies.. Seven day ZIO patch monitor to be ordered in approximately 1 week 1 month after beginning antiarrhythmic therapy to assess for need for anticoagulation and exclude ventricular arrhythmias" - Cardiology note (01/12/22): 7 day refrigeration engineer done 01/2022 and reviewed > " no arrhythmia observed on monitor, good" - Clopidogrel instructions: Patient made aware that in order for spinal anesthesia, Clopidogrel needs to be held 7 days prior to surgery. Patient voiced understanding/will check if okay with prescriber. Chart Review Chart Review: Acceptable Risk for Surgery and Patient seen in Pre Admission Testing Teaching & Discussion Pre-Anesthesia Teaching/Discussion Notes: Instructed NPO after midnight before surgery,except medications with 15 cc of water. Medication instructions provided according to the PAT guidelines. History Surgery Operation Date: 03/13/22 09:30 Proposed Procedures p Right Anterior Total Hip Arthroplasty - Darci Kimball, Height/Weight Height: 5 ft 2 in Weight: 59 kg Allergies Allergy/AdvReac Type Severity Reaction Status Date / Time No Known Allergies Allergy Verified 02/07/22 10:21 Medications Home Medications Medication Instructions Recorded Confirmed Last Taken aspirin 81 mg tablet,delayed 81 mg PO Q2D 01/30/22 02/07/22 Unknown release (Adult Low Dose Aspirin) atorvastatin 80 mg tablet 80 mg PO HS 01/30/22 02/07/22 Unknown calcium carbonate 600 mg-vitamin 1 cap PO QAM 01/30/22 02/07/22 Unknown D3 12.5 mcg (500 unit) capsule (Calcium 600 with Vitamin D3) citalopram 20 mg tablet 20 mg PO QAM 01/30/22 02/07/22 Unknown clopidogrel 75 mg tablet 75 mg PO QAM 01/30/22 02/07/22 Unknown dronedarone 400 mg tablet (Multaq) 400 mg PO BID 01/30/22 02/07/22 Unknown fluticasone propionate 50 1 spray intranasal DAILY 01/30/22 02/07/22 Unknown mcg/actuation nasal spray,suspension (Allergy Relief (fluticasone)) lutein 20 mg capsule 20 mg PO QAM 01/30/22 02/07/22 Unknown metoprolol succinate 25 mg 25 mg PO BID 01/30/22 02/07/22 Unknown tablet,extended release 24 hr multivitamin (Daily Multi-Vitamin) 1 tab PO QAM 01/30/22 02/07/22 Unknown nitroglycerin 0.4 mg sublingual 0.4 mg sublingual Q5M PRN Chest 01/30/22 02/07/22 Unknown tablet Pain olopatadine 0.1 % eye drops 1 drp ophthalmic (eye) BID 01/30/22 02/07/22 Unknown pantoprazole 40 mg tablet,delayed 40 mg PO DAILY 01/30/22 02/07/22 Unknown release (Protonix) valacyclovir 500 mg tablet 1,000 mg PO QAM PRN Cold Sores 01/30/22 02/07/22 Unknown venlafaxine 37.5 mg 37.5 mg PO DAILY 01/30/22 02/07/22 Unknown capsule,extended release 24 hr omega-3 fatty acids 1,250 mg PO QAM 02/07/22 02/07/22 Unknown pantoprazole 20 mg tablet,delayed 20 mg PO QAM 02/07/22 02/07/22 Unknown release (Protonix) white petrolatum-mineral oil 83 1 applic ophthalmic (eye) BID PRN 02/07/22 02/07/22 Unknown %-15 % eye ointment (Artificial eye dryness Eye Lubricant) Past Medical History Medical History Anxiety CAD (coronary artery disease) RICHARD x2 to LAD (2016) History of tachycardia Hx of cataract Hyperlipemia Myocardial Infarction [address] Sheridan ([facility]) Osteoarthritis Exercise / Class Metabolic Activity II 4-5 Yardwork/Stairs/Walk up hill (one FS (no CP, no SOB)) Past Surgical History Surgical History History of cardiac cath 2016 ([place] + [facility]) > stents x2 History of esophagogastroduodenoscopy (EGD) History of loop recorder 2019 (still present, monitored by pt's [place] registered respiratory therapist) Hx of arthroscopy shoulder Hx of cataract extraction R/L Hx of colonoscopy Hx of oophorectomy R/L Hx of thumb surgery Right Past Anesthesia History No Family Hx of Anesthesia Complications and Other (Slow to wake) History of PONV No Hx of PONV and No Hx of Motion Sickness Social History Smoking Status: Former smoker Do You Dip or Chew Tobacco: No Smoking End Date: Quit 50 years ago Hx Alcohol Use: Yes Alcohol type: wine alcohol intake frequency: holidays/special occasions only Hx Substance Use: No substance use type: does not use Review of Systems Patient denies chest pain, shortness of breath, dyspnea on exertion, fever, chills, cough, wheezing, palpitations. Physical Exam Vital Signs VITALS BP 112/64 P 72 TEMP 98.7 SP02 98%RA RESP 16 PHYSICAL Mildly decreased cervical extension range of motion. Full TMJ range of motion. TMD 2.5 finger breaths (small chin) Mallampati Score 3 Dentition: intact, + dental work/teeth repaired (molars) Lungs: clear throughout to auscultation Cardiac: regular rate and rhythm with occasional extra beat, no murmurs noted Spine: normal Carotid arteries: negative bruit Extremities: no edema Lab Results Anesthesia Preop Results Results Anesthesia Widget: WBC 7.90 K/ul (4.8-10.8) 02/17/22 Hgb 12.3 g/dl (12.0-16.0) 02/17/22 Hct 38.4 % (34.1-44.9) 02/17/22 Plt 265 K/uL (130-400) 02/17/22 Na 139 mmol/L (136-145) 02/17/22 K 5.0 mmol/L (3.5-5.1) 02/17/22 Cl 106 mmol/L (98-107) 07/15/22 CO2 28 mmol/L (21-32) 02/17/22 BUN 27 mg/dl (6-23) H 02/17/22 Creat 1.23 mg/dl (0.6-1.2) H 02/17/22 Glucose Level 89 mg/dl (70-99(Fasting)) 02/17/22 PT 10.7 Seconds (9.0-12.0) 02/17/22 PTT 26.4 Seconds (21.0-31.0) 02/17/22 INR 1.0 (0.9-1.1) 02/17/22 Blood Type A Positive 02/17/22 Antibody Screen NEGATIVE 02/17/22 Testing Electrocardiogram Date: 12/23/21 Normal sinus rhythm at 66 bpm. LAFB. No significant change compared to 02/10/2021 per registered respiratory therapist review. Chest X-Ray Date: 02/17/22 Findings: + NAD Echocardiogram Date: 08/16/21 EF 55-60%. Grade I DD. Mild MR. Mild to moderate AR. Mild TR. Stress Test Date: 09/01/21 Negative stress test for ischemia, equivocal apical defect likely apical thinning artifact. Good functional capacity for patient's age. EF 71%. 4.6 METS. 95% MPHR. Cardiac Catheterization Date: 02/28/17 Coronary arteries have significant one-vessel disease. Percutaneous coronary intervention of the proximal LAD was successful with drug-eluting stent. Other Testing 7 day refrigeration engineer (01/12/22) Heart rate 54 bpm. Maximum heart rate 111 bpm. Average heart rate 73 bpm. Predominant underlying rhythm was sinus rhythm. 1 run of supraventricular ta chycardia occurred lasting 4 beats with a max rate of 94 bpm. Isolated SVE's were rare. SVE couplets were rare. No SVE triplets were present. Isolated VE's were rare. VE couplets were rare. No VE triplets were present.
[2022-03-13] MEDS ORDERED: TRANEXAMIC ACID 1,000 MG **IV Pre-op IV SCH (06:00)
[2022-03-13] MEDS ORDERED: GABAPENTIN 300 MG CAP PO SCH (06:00)
[2022-03-13] MEDS ORDERED: FAMOTIDINE 20 MG TAB PO SCH (06:00)
[2022-03-13] MEDS ORDERED: Ketorolac (*for OR use only*) 30 MG, dexAMETHasone 4 MG, KETAMINE HCL (**OR use only) 1... INFIL SCH (06:00)
[2022-03-13] MEDS ORDERED: dexAMETHasone 4 MG TAB PO SCH (06:00)
[2022-03-13] MEDS ORDERED: TRANEXAMIC ACID 1,000 MG **IV Intra-op IV SCH (06:00)
[2022-03-13] MEDS ORDERED: LR 60ML/HR IV SCH (06:00)
[2022-03-13] MEDS ORDERED: LR 500ML BOLUS, THEN 15ML/HR IV SCH (06:00)
[2022-03-13] MEDS ORDERED: ACETAMINOPHEN 500 MG TAB PO SCH (06:00)
[2022-03-13] MEDS ORDERED: ceFAZolin 1000MG 1,000 MG/7.5 ML SYR IV SCH (06:00)
[2022-03-13] MEDS ORDERED: BUPIVACAINE 0.5 % 5 MG/1 ML PF 10ML VIAL ONE (06:15)
[2022-03-13] MEDS ORDERED: MIDAZOLAM HCL 1 MG/ML 2ML VIAL ONE (06:23)
[2022-03-13] MEDS ORDERED: ORTHO JOINT ANESTHETIC ONE (06:35)
--- NOTE | 2022-03-13 06:45 | History & Physical Bridge Note ---
Date of Service March 13, 2022 History & Physical Bridge Note I have examined the patient, reviewed the History & Physical and in the interval since the performance of the History & Physical I have noted the following changes of clinical significance: no changes noted
[2022-03-13] MEDS ORDERED: HYDROmorphone INJ 2 MG/ML SYR/VIAL IV PRN (07:01)
[2022-03-13] MEDS ORDERED: ATROPINE SULFATE 0.1 MG/ML 10ML SYR IV PRN (07:01)
[2022-03-13] MEDS ORDERED: ePHEDrine sulfate 50 MG/ML AMP IV PRN (07:01)
[2022-03-13] MEDS ORDERED: fentaNYL citrate 100 MCG/2 ML VIAL IV PRN (07:01)
[2022-03-13] MEDS ORDERED: ONDANSETRON INJ 2 MG/ML 2 ML VIAL IV PRN ×2 (07:01→09:50)
[2022-03-13] MEDS ORDERED: PROPOFOL IV EMULSION 10 MG/ML 20 ML VIAL IV ONE (07:06)
--- NOTE | 2022-03-13 08:17 | Operative Report ---
PG Post Operative Report Pre & Post Diagnosis Operation Date: 03/13/22 07:00 Pre-Op Diagnosis: Right Hip Degenerative Joint Disease Post-Op Diagnosis: Right Hip Degenerative Joint Disease I identified the patient and participated in the time-out.: Yes Procedure Operation Date: 03/13/22 07:00 Actual Procedures p Right Anterior Total Hip Arthroplasty(Right) - Darci Kimball DO Surgeon Darci Kimball DO Commercial Retoucher Darci Birch PA-C Estimated Blood Loss 200 Findings Consistent with Post-Op Diagnosis Specimens Right femoral head Description of Procedure Implants used I used a ZimmerBiomet total hip arthroplasty system with a size 48 Avenir Complete stem, a 2 standard offset mm G7 cup with a 25mm screw, an E1 polyet hylene liner, a 32 mm ceramic head with a -3.5 neck. Ayala arrived at the hospital for the above procedure. She was seen in the preoperative holding area and the operative extremity was identified and signed. She was given a spinal anesthetic, a preoperative antibiotic, and TXA. She was then taken back to the operating room and laid on the table in the supine position. She was given basic sedation. The operative leg was secured to a Puristst leg positioner. The hip was then prepped and draped in sterile fashion. A timeout was done and the patient and the operative extremity was properly identified. An anterior approach was used. Dissection was taken down through the fascia and the tensor muscle belly was retracted laterally and the rectus was retracted medially. The circumflex vessels were identified and ligated. The capsule was then incised and tagged for later repair. The femoral neck was then cut and the femoral head was removed. The acetabulum was exposed. Time was spent doing a complete circumferential labral release. Sequential reaming of the acetabulum up to a size 47 reamer was done. Final reamings were done under fluoroscopy to ensure appropriate version. A Biomet 48 mm G7 cup was then impacted into place. A single 25 mm screw was placed. The E1 polyethylene liner was then snapped into place. Surrounding soft tissues were then injected with 100 cc of an orthopedic pain control cocktail. The proximal femur was then exposed. Sequential broaching up to a size 2 broach was done. Off that broach a size 32 head with a -3.5 neck was trialed. The hip was reduced and fluoroscopic images showed anatomic alignment of the implants in acceptable length. The broach was removed. The final size 2 Avenir Complete stem was then impacted into place. A ceramic 32 mm head with a -3.5 neck was then impacted onto the stem and the hip was reduced. Final fluoroscopic images showed anatomic alignment of the hip. The capsule was then closed with #1 Vicry l suture. A dilute betadyne lavage was then done for 3 minutes. The joint was then irrigated with normal saline solution. The fascia was closed with #1 PDS suture. Skin was closed with 2-0 Vicryl, denzel, and a Silverlon dressing. She was then transferred to a hospital bed and taken to the post anesthesia care unit in stable condition. She tolerated the procedure well. Darci Birch PA-C, was present for the entire procedure. He was critical for patient positioning, prepping, draping, retraction exposure, wound closure and application of sterile dressing. I attest to the content of the Intraoperative Record and any orders documented therein. Any exceptions are noted below.
--- NOTE | 2022-03-13 09:05 | Fluoroscopy Report ---
FL hip RT 1V CLINICAL HISTORY: RIGHT ANTERIOR WESLEY TECHNIQUE: 2 views were obtained with the C-arm in the OR with the above procedure. Total fluoroscopy time was 19.6 seconds. Total skin dose was 0.79 mGy. Comparison: None available at the time of this dictation. FINDINGS/IMPRESSION: Intraoperative images were obtained of right hip total arthroplasty. Please correlate with intraoperative fluoroscopy and operative report. ACT 112: Negative or not required by law. Electronically signed by: Harish Pollard M.D. 03/13/2022 9:03 AM
--- NOTE | 2022-03-13 09:19 | XRay Report ---
XR hip 1V RT w pelvis HISTORY: 81 years-old Female IN PACU - A/P PELVIS and LATERAL HIP right hip total joint arthroplast y COMPARISON: Fluoroscopic images of the right hip of same day TECHNIQUE: AP view of the pelvis with crosstable lateral view of the right hip FINDINGS: Satisfactory alignment of the right hip total joint arthroplasty. Lateral skin denzel are present al elise with expected postoperative soft tissue swelling with deep tissue air. No acute fracture or unexp ected opaque foreign body. Mild left hip osteoarthritis. IMPRESSION: Right hip total joint arthroplasty with expected postoperative changes. ACT 112: Negative or not required by law. The above report was generated using voice recognition software. It may contain grammatical, syntax o r spelling errors. Electronically signed by: Ganesh Broussard M.D. 03/13/2022 9:18 AM
--- NOTE | 2022-03-13 09:28 | Anesthesiology Progress Note ---
Date of Service March 13, 2022 Anesthesia Post Procedure Vital Signs Vital Signs: Temp Pulse Pulse Resp BP BP Pulse Ox 03/13/22 09:10 53 L 17 114/59 L 98 03/13/22 09:20 50 L 12 113/49 L 100 03/13/22 09:00 54 L 11 L 114/52 L 100 03/13/22 08:50 55 L 10 L 106/49 L 99 03/13/22 08:40 55 L 10 L 133/57 L 98 03/13/22 08:30 36.1 C L 57 L 13 86/46 L 95 03/13/22 05:58 36.8 C 57 L 20 113/56 L 97 O2 Del Method O2 Flow Rate 03/13/22 09:10 Room Air 03/13/22 09:20 Room Air 03/13/22 09:00 Oxymask 2 03/13/22 08:50 Oxymask 4 03/13/22 08:40 Oxymask 4 03/13/22 08:30 Oxymask 4 03/13/22 05:58 Room Air Transfer of Care Handoff Completed per policy Notes Mental Status: alert / awake / arousable and participated in evaluation Patient Amnestic to Procedure: Yes Nausea / Vomiting: adequately controlled Pain: adequately controlled Airway Patency, RR, SpO2: stable & adequate BP & HR: stable & adequate Hydration State: stable & adequate Anesthetic Complications: no major complications apparent and Pt Satisfied with anesthetic care
[2022-03-13] MEDS ORDERED: valACYclovir HCL 500 MG TABLET PO PRN (09:50)
[2022-03-13] MEDS ORDERED: NALOXONE HCL 0.4 MG/1 ML VIAL/CARP IV PRN (09:50)
[2022-03-13] MEDS ORDERED: HYDROmorphone INJ 0.5 MG/0.5 ML SYR IV PRN (09:50)
[2022-03-13] MEDS ORDERED: NITROGLYCERIN SL 0.4 MG/TAB TAB SL PRN (09:50)
[2022-03-13] MEDS ORDERED: MAGNESIUM HYDROXIDE SUSP 30 ML UDC PO PRN (09:50)
[2022-03-13] MEDS ORDERED: bisacodyL 10 MG SUPP PR PRN (09:50)
[2022-03-13] MEDS ORDERED: METOCLOPRAMIDE HCL INJ 5 MG/ML 2 ML VIAL IV PRN (09:50)
[2022-03-13] MEDS: SODIUM CHLORIDE 0.9% 1000ML 1,000 ML IV SCH ×2 (10:25→19:43)
[2022-03-13] MEDS: FLUTICASONE PROPIONATE NA SPR 16 GM BTL NAE SCH (10:41)
[2022-03-13] MEDS: DRONEDARONE HCL 400 MG TAB PO SCH ×2 (10:42→20:20)
[2022-03-13] MEDS: ASPIRIN 81 MG ECTAB PO SCH ×2 (10:42→20:21)
[2022-03-13] MEDS: DOCUSATE SODIUM 100 MG CAP PO SCH ×2 (10:42→20:19)
[2022-03-13] MEDS: KETOROLAC TROMETHAMINE 15 MG/ML VIAL IV SCH ×2 (12:01→17:19)
[2022-03-13] MEDS: ceFAZolin 2000MG 2,000 MG/15 ML SYR IV SCH ×2 (14:42→21:51)
[2022-03-13] MEDS: oxyCODONE HCL IR 5 MG TAB (IMMEDIATE RELEASE) PO PRN ×2 (15:27→19:53)
[2022-03-13] MEDS: METOPROLOL SUCC 25MG EXT REL TAB PO SCH (20:24)
[2022-03-13] MEDS ORDERED: VENLAFAXINE HCL XR 37.5 MG CAPXR PO SCH (21:00)
[2022-03-13] MEDS ORDERED: CITALOPRAM 20 MG TAB PO SCH (21:00)
[2022-03-13] MEDS ORDERED: ATORVASTATIN 40 MG TAB PO SCH (21:00)
[2022-03-13] MEDS ORDERED: SENNA 8.6 MG TAB PO SCH (21:00)
[2022-03-13] MEDS: ACETAMINOPHEN 500 MG TAB PO SCH (21:51)
[2022-03-14] MEDS: KETOROLAC TROMETHAMINE 15 MG/ML VIAL IV SCH ×2 (00:03→05:25)
[2022-03-14] MEDS: ACETAMINOPHEN 500 MG TAB PO SCH (05:24)
[2022-03-14] MEDS: SODIUM CHLORIDE 0.9% 1000ML 1,000 ML IV SCH (05:37)
--- NOTE | 2022-03-14 06:54 | Orthopedic Progress Note ---
Date of Service March 14, 2022 Assessment & Plan (1) Status post right hip replacement: Overall she is doing very well. She is not having much pain in the right hip. She will be seen by physical therapy today for ambulation and range of motion exercises. She can be discharged home later today. She will follow-up with orthopedics in 2 weeks. Mindi Cai was seen and examined at bedside this morning. Overall she is doing very well. She is not having much pain in the right hip. She has been up and ambulating in the hallways. She has no complaints.. Review of Systems All systems reviewed & are unremarkable except as noted in HPI & below. Physical Exam On physical examination of the right hip, the dressing is clean and dry. Her leg lengths are equal. She has active dorsiflexion plantarflexion of her right ankle.. Results & Data Results & Data Laboratory Results . Diagnostic Findings Postoperative x-rays of the right hip show the prosthesis to be in anatomic alignment without any evidence of fracture, desiccation, or loosening.. PG Care Time/CCT Total # of Minutes Spent Total Time Spent with Patient: Total time spent is greater than 50% in coordination of care (as documented) at patient's floor/unit and/or counseling patient: Coding Level of Care Code 77981 Post Operative Follow-Up Diagnoses Status post right hip replacement Z96.641
--- NOTE | 2022-03-14 06:55 | Discharge Summary ---
Date of Service March 14, 2022 Principal Diagnosis Same as "Discharge Diagnosis" noted below under Discharge Instructions. Discharge Exam On physical examination of the right hip, the dressing is clean and dry. Her leg lengths are equal. She has active dorsiflexion plantarflexion of her right ankle.. Discharge Data Procedures Performed Operation Date: 03/13/22 07:00 Actual Procedures p Right Anterior Total Hip Arthroplasty(Right) - Darci Kimball DO Ordered Studies 03/13/22 [place] hip RT 1V Routine Hospital Course (1) Status post right hip replacement: On March 13, 2022 Ayala arrived at [facility] and underwent a right hip replacement without complication. She had a spinal anesthetic. Postoperatively she was started on aspirin and Plavix for DVT prophylaxis and transferred to the general orthopedic floors. Her hospital course was uneventful. On postop day #1, her vital signs were stable and her pain was well controlled. She was able to participate well with physical therapy doing ambulation and range of motion exercises. She was then discharged home. She will follow-up with orthopedics in 2 weeks. PG Care Time/CCT Total # of Minutes Spent Total Time Spent with Patient: Total time spent is greater than 50% in coordination of care (as documented) at patient's floor/unit and/or counseling patient: Discharge Plan Discharge Items Patient Disposition: Home - Home Health Services Reason For Visit: Right Hip DJD Discharge Diagnosis: Right hip replacement Activity: Per Instructions section Non-emergency contact: Surgeon Call non-emergency contact if: your wound has increased redness and your wound has increased drainage Follow-up/Referrals: Liana Stover MD [Primary Care Provider] - Diet: Regular Addtl Attending Provider Instructions: Activity and Therapy Recommendations: * If you are using [facility] then therapy will be provided at your home until they feel you have accomplished all of your goals. * If you are using [facility] then Physical Therapy will be provided until they feel you are ready to start Outpatient Physical Therapy. * If you are not using home therapy then Outpatient Physical Therapy should start about 3-5 days from your day of surgery. Therapy will last about 6-10 weeks * You were shown a series of exercises in the hospital. Do these exercises three times each day including the exercises you were shown in physical therapy. * Get up and walk several times each day.~ For the first four weeks, try not to stand or walk for more than one hour at a time. If you do stand or walk for more than one hour, you will not hurt anything, but your leg will likely swell.~~ * As you feel comfortable, you may change from the walker or crutches to a cane and~then to independent walking. Medications: * Narcotic You will likely be sent home from the hospital with a prescription for the narcotic pain medication that worked best throughout your stay. * Aspirin Most patients will be required to take Aspirin 81mg twice a day for 6 weeks after surgery. This is obtained [id number] and a prescription is not necessary. * Other medications may be prescribed for specific circumstances. If you have any questions, please call the office at . * Resume previous home medications unless otherwise instructed TEDs/Elastic Stockings: The white elastic stockings help limit swelling and prevent blood clots from forming in your legs. The more you wear them, the more they work. Wear them for six weeks. Dressing Care: Leave the Silverlon dressing in place for 7 days. After 7 days you may remove the dressing. If the incision is not draining then you may leave the denzel open to air. If there is a little bit of drainage or if the denzel are getting stuck on your clothing then cover the incision with a dry dressing. The denzel will be removed at your 2 week follow-up appointment. Showering: You may shower with the Silverlon dressing in place. Do not let the shower spray hit the dressing directly. Pat the Silverlon dressing dry. If the dressing becomes wet underneath, then simply remove the dressing. Keep the incision dry until you are 7 days out from the day of surgery. After 7 days you may remove the Silverlon dressing and shower with the denzel exposed. Let soapy water run over the denzel and pat them dry. Do not scrub or soak the incision. Things To Watch For: * Drainage from the incision site that occurs more than one week after your surgery. * Increased redness at the incision site. * Fever above 102 degrees Fahrenheit. * Unusual chest pain or shortness of breath. * Call [facility] at with any of the above problems Follow-Up Visit: Follow-up with Dr. Kimball's PA (Darci Birch) 2-3 weeks after your day of surgery. He will remove your denzel and answer any questions. If you have any additional questions or concerns, Dr Kimball is usually in the office at the same time and will be available An appointment was probably scheduled when you signed-up for surgery in the office. If you have any questions call Office Instructions: More detailed instructions as well as Frequently Asked Questions were provided in a folder by our office when you signed-up for surgery. Please review these instructions when you get home. If you have any further questions or concerns, please feel free to call the office at [phone] Pending Studies at Discharge: No Stand-Alone Forms: My [facility] Medications and DC Order Prescriptions: New oxycodone-acetaminophen 5-325 mg tablet 1 tab PO Q6H PRN (Reason: pain) Qty: 30 0RF Continued venlafaxine 37.5 mg capsule,extended release 24hr 37.5 mg PO DAILY nitroglycerin 0.4 mg tablet, sublingual 0.4 mg sublingual Q5M PRN (Reason: Chest Pain) Rx Instructions: do not exceed 3 doses per episode clopidogrel 75 mg tablet 75 mg PO QAM metoprolol succinate 25 mg tablet extended release 24 hr 25 mg PO BID atorvastatin 80 mg tablet 80 mg PO HS aspirin [Adult Low Dose Aspirin] 81 mg tablet,delayed release (DR/EC) 81 mg PO Q2D citalopram 20 mg tablet 20 mg PO QAM fluticasone propionate [Allergy Relief (fluticasone)] 50 mcg/actuation spray,suspension 1 spray intranasal DAILY Rx Instructions: administer into each nostril olopatadine 0.1 % drops 1 drp ophthalmic (eye) BID Rx Instructions: separate doses by at least 6-8 hours valacyclovir 500 mg tablet 1,000 mg PO QAM PRN (Reason: Cold Sores) calcium carbonate-vitamin D3 [Calcium 600 with Vitamin D3] 600 mg-12.5 mcg (500 unit) capsule 1 cap PO QAM lutein 20 mg capsule 20 mg PO QAM Rx Instructions: give with meal/snack multivitamin [Daily Multi-Vitamin] Tablet 1 tab PO QAM Multaq 400 mg tablet 400 mg PO BID Rx Instructions: must administer with a meal/food pantoprazole [Protonix] 20 mg Tablet,Delayed Release (Dr/Ec) 20 mg PO QAM [place] 3 Fish Oil Capsule 1,250 mg PO QAM Artificial Eye Lubricant 83-15 % Ointment 1 applic OPHTHALMIC (EYE) BID PRN (Reason: eye dryness) Discharge Orders: Discharge Order (Routine); Ordered 03/14/22 Ordered By: Darci Kimball Admission Data Admit Date/Time: 03/13/22 08:31 Attending Provider: Darci Kimball Admit Provider: Darci Kimball Primary Care Provider: Liana Stover
[2022-03-14] MEDS ORDERED: dexAMETHasone 4 MG TAB PO SCH (08:00)
[2022-03-14] MEDS: ASPIRIN 81 MG ECTAB PO SCH (08:37)
[2022-03-14] MEDS: DRONEDARONE HCL 400 MG TAB PO SCH (08:37)
[2022-03-14] MEDS: METOPROLOL SUCC 25MG EXT REL TAB PO SCH (08:38)
[2022-03-14] MEDS: DOCUSATE SODIUM 100 MG CAP PO SCH (08:39)
[2022-03-14] MEDS: FLUTICASONE PROPIONATE NA SPR 16 GM BTL NAE SCH (08:39)
[2022-03-14] MEDS ORDERED: CLOPIDOGREL BISULFATE 75 MG TAB PO SCH (09:00)
[2022-03-14] MEDS ORDERED: MULTIVITAMIN TAB PO SCH (09:00)
[2022-03-14] MEDS ORDERED: PANTOprazole 40 MG TAB PO SCH (09:00)
== END 2022-03-14 11:08 | disposition home health service (06) ==
LOC: 3E 05:20 → ASU 05:20